=== PATIENT | female | born 1980 | race Caucasian/White ===

== ENCOUNTER 2019-02-27 18:58 | Inpatient (IN) ==
[2019-02-27] MEDS ORDERED: 0.9 % Sodium Chloride 1,000 ML IVC ONE (19:36)
[2019-02-27] MEDS ORDERED: Isovue-370 500 ML BOTTLE IVP ONE (19:37)
[2019-02-27] MEDS ORDERED: traMADol 50 MG TABLET PO STA (19:39)
[2019-02-27] MEDS ORDERED: Orphenadrine 60 MG/2 ML VIAL IVP ONE (19:44)
[2019-02-27 19:59] LABS: Bilirubin,Urine Negative (Negative); Blood,Urine Negative (Negative); Clarity,Urine Turbid (Clear); Color,Urine Yellow (Yellow); Glucose,Urine (UA) Normal (Normal); Ketones,Urine Negative (Negative); Leukocyte Esterase,Urine Trace (Negative); Nitrite,Urine Negative (Negative); PH,Urine 6.5 pH Units (5.0-8.0); Protein,Urine 30 mg/dL (Neg-Trace); Specific Gravity,Urine 1.023 (1.010-1.025); Urobilinogen,Urine Normal (Normal)
[2019-02-27 20:00] LABS: Bacteria,Urine Moderate per hpf (None-Few); RBC,Urine 0-3 per hpf (0-3); Squamous Epithelial Cell,Urine Many per lpf (None-Few)
[2019-02-27 20:10] LABS: Basophils # 0.1 K/mcL (0.0-0.2); Basophils % 0.6 %; Eosinophils # 0.3 K/mcL (0.0-0.6); Hematocrit 46.3 % (35.3-44.9); Hemoglobin 15.3 g/dL (11.5-15.4); Immature Granulocytes % 0.2 % (0-4); Lymphocytes # 5.3 K/mcL (0.6-4.6); Lymphocytes % 41.7 %; Mean Corpuscular Hemoglobin 29.3 pg (28.0-33.3); Mean Corpuscular Volume 88.5 fL (83.0-100.0); Monocytes # 1.3 K/mcL (0.0-1.3); Monocytes % 9.8 %; Neutrophils # 5.8 K/mcL (1.6-8.9); Platelet Count 366 K/mcL (140-400); Red Blood Count 5.23 M/mcL (3.82-4.97); Red Cell Distribution Width 14.9 % (11.5-14.5); Segmented Neutrophils % 45.7 %; White Blood Count 12.7 K/mcL (4.3-11.1)
[2019-02-27 20:39] LABS: Alanine Aminotransferase 330 Units/L (7-52); Albumin 4.1 g/dL (3.5-5.7); Albumin/Globulin Ratio 1.2 (1.1-2.2); Alkaline Phosphatase 99 Units/L (34-104); Aspartate Amino Transferase 227 Units/L (13-39); BUN/Creatinine Ratio 13 (6-26); Bilirubin,Total 0.3 mg/dL (0.3-1.0); Blood Urea Nitrogen 10 mg/dL (6-20); Calcium 9.2 mg/dL (8.6-10.3); Carbon Dioxide 26 mEq/L (23-29); Chloride 102 mEq/L (98-107); Creatine Kinase 52 Units/L (30-223); Globulin 3.3 g/dL (2.4-3.5); Glucose 86 mg/dL (70-105); Magnesium 1.9 mg/dL (1.6-2.6); Osmolality,Calculated 282 (280-300); Potassium 3.9 mEq/L (3.5-5.1); Sodium 137 mEq/L (136-145); Total Protein 7.4 g/dL (6.4-8.9); eGFR For African Americans > 60 (> 60); eGFR For Non-African Americans > 60 (> 60)
[2019-02-27 20:56] LABS: Candida DNA Not Detected (Not Detect); Gardnerella DNA DETECTED (Not Detect); Trichomonas DNA Not Detected (Not Detect)
[2019-02-27 23:54] LABS: Acetaminophen < 10 mcg/mL (10-20)
[2019-02-28 00:08] LABS: Thyroid Stimulating Hormone 3.026 mcIU/mL (0.340-5.600)
[2019-02-28] MEDS ORDERED: Ibuprofen 600 MG TABLET PO ONE (00:57)
[2019-02-28 01:45] LABS: INR 1.1; Prothrombin Time 12.7 Seconds (9.4-12.1)
[2019-02-28 01:57] LABS: Ethanol < 10 mg/dL (Less than 10); Salicylate < 2.5 mg/dL (15.0-30.0)
[2019-02-28 02:46] LABS: Hepatitis B Surface Antigen Nonreactive (Nonreactive)
[2019-02-28 03:15] LABS: Hepatitis B Core IgM Nonreactive (Nonreactive)
[2019-02-28 03:16] LABS: Hepatitis A Antibody IgM Nonreactive (Nonreactive)
[2019-02-28] MEDS ORDERED: Naloxone 0.4 MG/ML INJ IVP PRN (04:00)
[2019-02-28] MEDS ORDERED: Ketorolac 15 MG/ML VIAL IVP ONE ×2 (04:04→22:04)
[2019-02-28] MEDS ORDERED: Dextrose Gel 15 GM/37.5 ML TUBE PO PRN ×2 (04:07)
[2019-02-28] MEDS ORDERED: D5% in Water 1,000 ML IVC PRN (04:07)
[2019-02-28] MEDS ORDERED: *HR* Dextrose 50 % in Water (Syg) 50 ML SYRINGE IVP PRN (04:07)
[2019-02-28 04:56] LABS: Hepatitis C Virus Antibody Reactive (Nonreactive)
[2019-02-28 07:29] LABS: Basophils # 0.1 K/mcL (0.0-0.2); Basophils % 0.6 %; Eosinophils # 0.3 K/mcL (0.0-0.6); Eosinophils % 3.5 %; Hematocrit 42.5 % (35.3-44.9); Hemoglobin 13.4 g/dL (11.5-15.4); Immature Granulocytes % 0.1 % (0-4); Lymphocytes # 4.7 K/mcL (0.6-4.6); Lymphocytes % 49.4 %; Mean Corpuscular HGB Conc 31.5 g/dL (31.6-35.5); Mean Corpuscular Hemoglobin 28.9 pg (28.0-33.3); Mean Corpuscular Volume 91.6 fL (83.0-100.0); Mean Platelet Volume 9.7 fL (9.4-12.4); Monocytes # 1.3 K/mcL (0.0-1.3); Monocytes % 13.1 %; Neutrophils # 3.2 K/mcL (1.6-8.9); Platelet Count 319 K/mcL (140-400); Red Blood Count 4.64 M/mcL (3.82-4.97); Segmented Neutrophils % 33.3 %; White Blood Count 9.5 K/mcL (4.3-11.1)
[2019-02-28 07:48] LABS: Albumin 3.4 g/dL (3.5-5.7); Albumin/Globulin Ratio 1.1 (1.1-2.2); Bilirubin,Direct 0.1 mg/dL (0.0-0.2); Bilirubin,Indirect 0.2 mg/dL (0.0-1.0); Bilirubin,Total 0.3 mg/dL (0.3-1.0); Globulin 3.1 g/dL (2.4-3.5); Total Protein 6.5 g/dL (6.4-8.9)
[2019-02-28 07:49] LABS: BUN/Creatinine Ratio 15 (6-26); Blood Urea Nitrogen 9 mg/dL (6-20); Calcium 8.7 mg/dL (8.6-10.3); Carbon Dioxide 25 mEq/L (23-29); Chloride 105 mEq/L (98-107); Glucose 122 mg/dL (70-105); Osmolality,Calculated 284 (280-300); Potassium 3.9 mEq/L (3.5-5.1); Sodium 137 mEq/L (136-145); eGFR For African Americans > 60 (> 60); eGFR For Non-African Americans > 60 (> 60)
[2019-02-28] MEDS: metroNIDAZOLE 500 MG TABLET PO SCH ×2 (09:02→20:57)
[2019-02-28] MEDS: traMADol 50 MG TABLET PO PRN ×2 (12:05→20:57)
[2019-03-01] MEDS: traMADol 50 MG TABLET PO PRN ×4 (03:03→23:07)
[2019-03-01 04:44] LABS: Acinetobacter baumannii by PCR Not Detected (Not Detect); Candida albicans by PCR Not Detected (Not Detect); Candida glabrata by PCR Not Detected (Not Detect); Candida krusei by PCR Not Detected (Not Detect); Candida parapsilosis by PCR Not Detected (Not Detect); Candida tropicalis by PCR Not Detected (Not Detect); Enterobacter cloacae Cmplx PCR Not Detected (Not Detect); Enterobacteriaceae by PCR Not Detected (Not Detect); Enterococcus by PCR Not Detected (Not Detect); Escherichia coli by PCR Not Detected (Not Detect); Klebsiella oxytoca by PCR Not Detected (Not Detect); Klebsiella pneumoniae by PCR Not Detected (Not Detect); Proteus by PCR Not Detected (Not Detect); Pseudomonas aeruginosa by PCR Not Detected (Not Detect); Serratia marcescens by PCR Not Detected (Not Detect); Staphylococcus aureus by PCR Not Detected (Not Detect); Staphylococcus by PCR DETECTED (Not Detect); Streptococcus agalactiae(B)PCR Not Detected (Not Detect); Streptococcus by PCR Not Detected (Not Detect); Streptococcus pneumoniae PCR Not Detected (Not Detect); Streptococcus pyogenes (A) PCR Not Detected (Not Detect); blaKPC Carbapenem-Resist Gene Not Detected (Not Detect); mecA Methicillin-Resist Gene DETECTED (Not Detect); vanA/B Vancomycin-Resist Genes Not Detected (Not Detect)
[2019-03-01 05:19] LABS: Albumin 3.3 g/dL (3.5-5.7); Albumin/Globulin Ratio 1.1 (1.1-2.2); Bilirubin,Indirect 0.4 mg/dL (0.0-1.0); Bilirubin,Total 0.4 mg/dL (0.3-1.0); Total Protein 6.3 g/dL (6.4-8.9)
[2019-03-01] MEDS: metroNIDAZOLE 500 MG TABLET PO SCH ×2 (08:14→20:13)
[2019-03-01] MEDS: Ondansetron 4 MG/2 ML VIAL IVP PRN ×2 (08:19→18:24)
[2019-03-01] MEDS ORDERED: Vancomycin (wt based) 1,000 MG VIAL IVPB SCH (09:00)
[2019-03-01] MEDS: Morphine Sulfate 2 MG/ML SYRINGE IVP PRN ×2 (11:45→18:28)
[2019-03-02] MEDS: Ondansetron 4 MG/2 ML VIAL IVP PRN ×2 (01:13→20:49)
[2019-03-02 04:33] LABS: Hematocrit 42.5 % (35.3-44.9); Hemoglobin 13.5 g/dL (11.5-15.4); Mean Corpuscular HGB Conc 31.8 g/dL (31.6-35.5); Mean Corpuscular Hemoglobin 28.8 pg (28.0-33.3); Mean Corpuscular Volume 90.8 fL (83.0-100.0); Mean Platelet Volume 10.2 fL (9.4-12.4); Platelet Count 312 K/mcL (140-400); Red Blood Count 4.68 M/mcL (3.82-4.97); Red Cell Distribution Width 14.9 % (11.5-14.5); White Blood Count 11.9 K/mcL (4.3-11.1)
[2019-03-02 04:48] LABS: Alanine Aminotransferase 313 Units/L (7-52); Albumin 3.5 g/dL (3.5-5.7); Albumin/Globulin Ratio 1.1 (1.1-2.2); Alkaline Phosphatase 90 Units/L (34-104); Aspartate Amino Transferase 229 Units/L (13-39); Bilirubin,Direct 0.2 mg/dL (0.0-0.2); Bilirubin,Indirect 0.3 mg/dL (0.0-1.0); Bilirubin,Total 0.5 mg/dL (0.3-1.0); Globulin 3.1 g/dL (2.4-3.5); Total Protein 6.6 g/dL (6.4-8.9)
[2019-03-02] MEDS: metroNIDAZOLE 500 MG TABLET PO SCH ×2 (08:50→20:44)
[2019-03-02 09:36] LABS: BUN/Creatinine Ratio 15 (6-26); Blood Urea Nitrogen 10 mg/dL (6-20); eGFR For African Americans > 60 (> 60); eGFR For Non-African Americans > 60 (> 60)
[2019-03-02] MEDS: 0.9 % Sodium Chloride 1,000 ML IVC SCH (12:01)
[2019-03-02] MEDS: traMADol 50 MG TABLET PO PRN ×2 (12:08→19:27)
[2019-03-02 12:36] LABS: HCV Quant Log 6.22 log IU/mL
[2019-03-02 12:53] LABS: HCV Quant Interpretation DETECTED (Not Detected)
[2019-03-03 00:04] LABS: Amphetamine Screen,Urine Positive ng/mL (Cutoff=1000); Barbiturate Screen,Urine Negative ng/mL (Cutoff=200); Benzodiazepines Screen,Urine Negative ng/mL (Cutoff=200); Cannabinoid Screen,Urine Positive ng/mL (Cutoff = 50); Cocaine Screen,Urine Negative ng/mL (Cutoff= 300); Opiate Screen,Urine Negative ng/mL (Cutoff=300); Phencyclidine Screen,Urine Negative ng/mL (Cutoff=25)
[2019-03-03 02:22] LABS: Basophils % 0.3 %; Eosinophils # 0.3 K/mcL (0.0-0.6); Eosinophils % 2.6 %; Hematocrit 43.3 % (35.3-44.9); Hemoglobin 13.8 g/dL (11.5-15.4); Immature Granulocytes % 0.3 % (0-4); Lymphocytes # 4.3 K/mcL (0.6-4.6); Lymphocytes % 37.4 %; Mean Corpuscular HGB Conc 31.9 g/dL (31.6-35.5); Mean Corpuscular Hemoglobin 29.6 pg (28.0-33.3); Mean Corpuscular Volume 92.7 fL (83.0-100.0); Mean Platelet Volume 9.8 fL (9.4-12.4); Monocytes # 1.2 K/mcL (0.0-1.3); Monocytes % 10.8 %; Neutrophils # 5.6 K/mcL (1.6-8.9); Platelet Count 330 K/mcL (140-400); Red Blood Count 4.67 M/mcL (3.82-4.97); Red Cell Distribution Width 15.1 % (11.5-14.5); Segmented Neutrophils % 48.6 %; White Blood Count 11.5 K/mcL (4.3-11.1)
[2019-03-03] MEDS: traMADol 50 MG TABLET PO PRN ×4 (02:37→18:11)
[2019-03-03 02:39] LABS: BUN/Creatinine Ratio 8 (6-26); Blood Urea Nitrogen 6 mg/dL (6-20); Calcium 8.6 mg/dL (8.6-10.3); Carbon Dioxide 29 mEq/L (23-29); Chloride 102 mEq/L (98-107); Glucose 71 mg/dL (70-105); Osmolality,Calculated 278 (280-300); Potassium 3.9 mEq/L (3.5-5.1); Sodium 136 mEq/L (136-145); eGFR For African Americans > 60 (> 60); eGFR For Non-African Americans > 60 (> 60)
[2019-03-03] MEDS: 0.9 % Sodium Chloride 1,000 ML IVC SCH ×3 (03:05→20:22)
[2019-03-03] MEDS: metroNIDAZOLE 500 MG TABLET PO SCH ×2 (08:15→20:23)
[2019-03-03] MEDS ORDERED: Aminoglycoside Consult 1 EACH MC ONE (10:58)
[2019-03-03] MEDS: Morphine Sulfate 2 MG/ML SYRINGE IVP PRN (20:24)
[2019-03-04] MEDS: 0.9 % Sodium Chloride 1,000 ML IVC SCH ×2 (06:01→17:15)
[2019-03-04] MEDS: metroNIDAZOLE 500 MG TABLET PO SCH ×2 (08:24→20:24)
[2019-03-04] MEDS: traMADol 50 MG TABLET PO PRN ×2 (08:24→13:43)
[2019-03-04] MEDS ORDERED: Ibuprofen 600 MG TABLET PO PRN (12:03)
[2019-03-04] MEDS: Morphine Sulfate 2 MG/ML SYRINGE IVP PRN ×2 (14:17→20:24)
[2019-03-04 15:00] LABS: Basophils # 0.1 K/mcL (0.0-0.2); Basophils % 0.6 %; Eosinophils # 0.3 K/mcL (0.0-0.6); Eosinophils % 3.1 %; Hematocrit 40.8 % (35.3-44.9); Hemoglobin 12.8 g/dL (11.5-15.4); Immature Granulocytes % 0.1 % (0-4); Lymphocytes # 3.9 K/mcL (0.6-4.6); Lymphocytes % 41.4 %; Mean Corpuscular HGB Conc 31.4 g/dL (31.6-35.5); Mean Corpuscular Volume 92.3 fL (83.0-100.0); Mean Platelet Volume 9.7 fL (9.4-12.4); Monocytes # 1.2 K/mcL (0.0-1.3); Monocytes % 12.6 %; Platelet Count 327 K/mcL (140-400); Red Blood Count 4.42 M/mcL (3.82-4.97); Red Cell Distribution Width 14.8 % (11.5-14.5); Segmented Neutrophils % 42.2 %; White Blood Count 9.4 K/mcL (4.3-11.1)
[2019-03-04 15:21] LABS: BUN/Creatinine Ratio 7 (6-26); Blood Urea Nitrogen 6 mg/dL (6-20); Carbon Dioxide 23 mEq/L (23-29); Chloride 106 mEq/L (98-107); Glucose 128 mg/dL (70-105); Osmolality,Calculated 279 (280-300); Potassium 3.9 mEq/L (3.5-5.1); Sodium 135 mEq/L (136-145); eGFR For African Americans > 60 (> 60); eGFR For Non-African Americans > 60 (> 60)
[2019-03-05] MEDS: 0.9 % Sodium Chloride 1,000 ML IVC SCH (01:13)
[2019-03-05] MEDS: traMADol 50 MG TABLET PO PRN (03:57)
[2019-03-05 05:43] LABS: Hematocrit 41.1 % (35.3-44.9); Hemoglobin 13.5 g/dL (11.5-15.4); Mean Corpuscular HGB Conc 32.8 g/dL (31.6-35.5); Mean Corpuscular Hemoglobin 29.5 pg (28.0-33.3); Mean Corpuscular Volume 89.9 fL (83.0-100.0); Mean Platelet Volume 9.6 fL (9.4-12.4); Platelet Count 325 K/mcL (140-400); Red Blood Count 4.57 M/mcL (3.82-4.97); Red Cell Distribution Width 14.8 % (11.5-14.5); White Blood Count 11.2 K/mcL (4.3-11.1)
[2019-03-05 06:06] LABS: BUN/Creatinine Ratio 15 (6-26); Blood Urea Nitrogen 10 mg/dL (6-20); Calcium 8.5 mg/dL (8.6-10.3); Carbon Dioxide 23 mEq/L (23-29); Chloride 104 mEq/L (98-107); Glucose 114 mg/dL (70-105); Osmolality,Calculated 282 (280-300); Potassium 3.9 mEq/L (3.5-5.1); Sodium 136 mEq/L (136-145); eGFR For African Americans > 60 (> 60); eGFR For Non-African Americans > 60 (> 60)
[2019-03-05 07:15] VITALS: BP 94/62
[2019-03-05] MEDS: metroNIDAZOLE 500 MG TABLET PO SCH (09:07)
== END 2019-03-05 10:59 | disposition home or self-care (01) | DRG 312 ==
LOC: EMEROOARM 18:58 → 3BNU 18:58
PROVIDERS: ADMIT Internal Medicine; ATTEND Internal Medicine

== ENCOUNTER 2019-08-03 03:18 | Observation (INO) ==
[2019-08-03] MEDS ORDERED: Ondansetron 4 MG/2 ML VIAL IVP STA (03:27)
[2019-08-03 03:53] LABS: Basophils % 0.2 %; Eosinophils % 0.3 %
[2019-08-03 03:55] LABS: Basophils # 0.1 K/mcL (0.0-0.2); Eosinophils # 0.1 K/mcL (0.0-0.6); Hematocrit 48.9 % (35.3-44.9); Hemoglobin 15.3 g/dL (11.5-15.4); Immature Granulocytes % 0.6 % (0-4); Lymphocytes # 3.7 K/mcL (0.6-4.6); Lymphocytes % 13.5 %; Mean Corpuscular HGB Conc 31.3 g/dL (31.6-35.5); Mean Corpuscular Hemoglobin 29.4 pg (28.0-33.3); Mean Corpuscular Volume 93.9 fL (83.0-100.0); Mean Platelet Volume 9.7 fL (9.4-12.4); Monocytes % 7.1 %; Platelet Count 371 K/mcL (140-400); Red Blood Count 5.21 M/mcL (3.82-4.97); Red Cell Distribution Width 14.2 % (11.5-14.5); Segmented Neutrophils % 78.3 %; White Blood Count 27.4 K/mcL (4.3-11.1)
[2019-08-03 03:55] LABS: Bilirubin,Urine Negative (Negative); Blood,Urine Large (Negative); Clarity,Urine Cloudy (Clear); Color,Urine Yellow (Yellow); Glucose,Urine (UA) Normal (Normal); Ketones,Urine Negative (Negative); Leukocyte Esterase,Urine Moderate (Negative); Nitrite,Urine Positive (Negative); Protein,Urine Negative (Neg-Trace); Specific Gravity,Urine 1.023 (1.010-1.025); Urobilinogen,Urine Normal (Normal)
[2019-08-03 03:58] LABS: Bacteria,Urine Few per hpf (None-Few); Hyaline Casts,Urine Moderate per lpf (None-Few); Squamous Epithelial Cell,Urine Many per lpf (None-Few); WBC,Urine 50-100 per hpf (0-3)
[2019-08-03 04:01] LABS: Neutrophils # 21.5 K/mcL (1.6-8.9)
[2019-08-03] MEDS ORDERED: 0.9 % Sodium Chloride 1,000 ML IVC STA (04:01)
[2019-08-03] MEDS ORDERED: Ketorolac 15 MG/ML VIAL IVP STA (04:01)
[2019-08-03] MEDS ORDERED: 0.9 % Sodium Chloride 500 ML IVC STA (04:02)
[2019-08-03 04:10] LABS: Alanine Aminotransferase 235 Units/L (7-52); Albumin 3.9 g/dL (3.5-5.7); Alkaline Phosphatase 110 Units/L (34-104); Aspartate Amino Transferase 206 Units/L (13-39); BUN/Creatinine Ratio 17 (6-26); Bilirubin,Direct 0.1 mg/dL (0.0-0.2); Bilirubin,Indirect 0.2 mg/dL (0.0-1.0); Bilirubin,Total 0.3 mg/dL (0.3-1.0); Blood Urea Nitrogen 13 mg/dL (6-20); Calcium 9.1 mg/dL (8.6-10.3); Carbon Dioxide 25 mEq/L (23-29); Chloride 103 mEq/L (98-107); Glucose 144 mg/dL (70-105); Lipase 14 Units/L (11-82); Osmolality,Calculated 289 (280-300); Potassium 4.5 mEq/L (3.5-5.1); Sodium 138 mEq/L (136-145); Total Protein 7.9 g/dL (6.4-8.9); eGFR For African Americans > 60 (> 60); eGFR For Non-African Americans > 60 (> 60)
[2019-08-03] MEDS ORDERED: cefTRIAXone 1,000 MG in 0.9 % Sodium Chloride Mini Bag 100 ML IVPB ONE (04:23)
[2019-08-03 04:28] LABS: Platelet Estimate Normal (Normal)
[2019-08-03] MEDS ORDERED: cefTRIAXone 1,000 MG in Water for inj. (sterile) 10 ML IVP ONE (04:31)
[2019-08-03] MEDS ORDERED: Morphine Sulfate 2 MG/ML SYRINGE IVP ONE (05:00)
[2019-08-03] MEDS ORDERED: Dextrose Gel 15 GM/37.5 ML TUBE PO PRN ×2 (05:44)
[2019-08-03] MEDS ORDERED: *HR* Dextrose 50 % in Water (Syg) 50 ML SYRINGE IVP PRN (05:44)
[2019-08-03] MEDS ORDERED: Naloxone 0.4 MG/ML INJ IVP PRN ×2 (05:44→05:48)
[2019-08-03] MEDS ORDERED: D5% in Water 1,000 ML IVC PRN (05:44)
[2019-08-03] MEDS ORDERED: Insulin LISPRO 300 UNITS/3 ML VIAL SQ SCH (06:00)
[2019-08-03] MEDS: MetroNIDAZOLE 500 MG/100 ML 500 MG/100 ML BAG IVPB SCH ×3 (06:42→21:39)
[2019-08-03] MEDS: Cefepime HCl 2,000 MG in Water for inj. (sterile) 20 ML IVP SCH ×3 (06:42→21:39)
[2019-08-03] MEDS ORDERED: Sennosides/Docusate Sodium TABLET PO PRN (08:00)
[2019-08-03] MEDS ORDERED: 0.9 % Sodium Chloride 1,000 ML IVC SCH (08:15)
[2019-08-03] MEDS: Insulin LISPRO 300 UNITS/3 ML VIAL SQ SCH ×3 (08:49→17:28)
[2019-08-03 11:45] LABS: Estimated Average Glucose 137 mg/dl
[2019-08-03] MEDS: Ondansetron 4 MG/2 ML VIAL IVP PRN (13:00)
[2019-08-03 17:19] LABS: Amphetamine Screen,Urine Negative ng/mL (Cutoff=1000); Barbiturate Screen,Urine Negative ng/mL (Cutoff=200)
[2019-08-03 17:21] LABS: Benzodiazepines Screen,Urine Negative ng/mL (Cutoff=300)
[2019-08-03 17:22] LABS: Cannabinoid Screen,Urine Positive ng/mL (Cutoff = 50); Cocaine Screen,Urine Negative ng/mL (Cutoff= 300); Opiate Screen,Urine Positive ng/mL (Cutoff=300); Phencyclidine Screen,Urine Negative ng/mL (Cutoff=25)
[2019-08-03] MEDS: *HR* Heparin 5,000 UNIT/ML VIAL SQ SCH (17:33)
[2019-08-03] MEDS: 0.9 % Sodium Chloride 1,000 ML IVC SCH (18:31)
[2019-08-04] MEDS: 0.9 % Sodium Chloride 1,000 ML IVC SCH (03:37)
[2019-08-04 04:57] LABS: Basophils % 0.3 %; Eosinophils # 0.2 K/mcL (0.0-0.6); Eosinophils % 2.5 %; Hematocrit 38.8 % (35.3-44.9); Immature Granulocytes % 0.2 % (0-4); Lymphocytes # 4.8 K/mcL (0.6-4.6); Lymphocytes % 51.9 %; Mean Corpuscular HGB Conc 32.2 g/dL (31.6-35.5); Mean Corpuscular Hemoglobin 30.9 pg (28.0-33.3); Mean Corpuscular Volume 95.8 fL (83.0-100.0); Mean Platelet Volume 10.3 fL (9.4-12.4); Monocytes # 0.7 K/mcL (0.0-1.3); Monocytes % 7.7 %; Neutrophils # 3.4 K/mcL (1.6-8.9); Platelet Count 314 K/mcL (140-400); Red Blood Count 4.05 M/mcL (3.82-4.97); Red Cell Distribution Width 14.4 % (11.5-14.5); Segmented Neutrophils % 37.4 %
[2019-08-04 04:58] LABS: Hemoglobin 12.5 g/dL (11.5-15.4); White Blood Count 9.2 K/mcL (4.3-11.1)
[2019-08-04 05:18] LABS: BUN/Creatinine Ratio 18 (6-26); Blood Urea Nitrogen 11 mg/dL (6-20); Calcium 7.7 mg/dL (8.6-10.3); Carbon Dioxide 25 mEq/L (23-29); Chloride 108 mEq/L (98-107); Glucose 85 mg/dL (70-105); Magnesium 1.8 mg/dL (1.6-2.6); Osmolality,Calculated 283 (280-300); Phosphorous 3.2 mg/dL (2.7-4.5); Potassium 3.9 mEq/L (3.5-5.1); Sodium 137 mEq/L (136-145); eGFR For African Americans > 60 (> 60); eGFR For Non-African Americans > 60 (> 60)
[2019-08-04] MEDS: Cefepime HCl 2,000 MG in Water for inj. (sterile) 20 ML IVP SCH (05:51)
[2019-08-04] MEDS: MetroNIDAZOLE 500 MG/100 ML 500 MG/100 ML BAG IVPB SCH (05:51)
[2019-08-04] MEDS: *HR* Heparin 5,000 UNIT/ML VIAL SQ SCH ×2 (05:52→17:16)
[2019-08-04] MEDS: cefTRIAXone 1,000 MG in Water for inj. (sterile) 10 ML IVP SCH (08:28)
[2019-08-04] MEDS: Insulin LISPRO 300 UNITS/3 ML VIAL SQ SCH ×3 (08:31→17:28)
[2019-08-04] MEDS: Ondansetron 4 MG/2 ML VIAL IVP PRN ×2 (12:49→23:33)
[2019-08-05] MEDS: *HR* Heparin 5,000 UNIT/ML VIAL SQ SCH (05:54)
[2019-08-05 06:34] VITALS: BP 106/72
[2019-08-05] MEDS: Insulin LISPRO 300 UNITS/3 ML VIAL SQ SCH (08:23)
[2019-08-05] MEDS: cefTRIAXone 1,000 MG in Water for inj. (sterile) 10 ML IVP SCH (08:35)
== END 2019-08-05 10:06 | disposition home or self-care (01) ==
LOC: 3ANU 03:18 → EMEROOARM 03:18 → SUATTDRO 05:15 → 3ANU 05:46
PROVIDERS: ADMIT Family Medicine; ATTEND Internal Medicine

== ENCOUNTER 2020-05-01 14:42 | Inpatient (IN) ==
[2020-05-01 15:39] LABS: Basophils # 0.1 K/mcL (0.0-0.2); Basophils % 0.4 %; Hematocrit 45.2 % (35.3-44.9); Hemoglobin 14.3 g/dL (11.5-15.4); Immature Granulocytes % 0.7 % (0-4); Lymphocytes # 2.2 K/mcL (0.6-4.6); Lymphocytes % 12.8 %; Mean Corpuscular HGB Conc 31.6 g/dL (31.6-35.5); Mean Corpuscular Hemoglobin 29.1 pg (28.0-33.3); Mean Corpuscular Volume 91.9 fL (83.0-100.0); Mean Platelet Volume 8.7 fL (9.4-12.4); Monocytes # 0.2 K/mcL (0.0-1.3); Monocytes % 1.1 %; Neutrophils # 14.4 K/mcL (1.6-8.9); Platelet Count 734 K/mcL (140-400); Red Blood Count 4.92 M/mcL (3.82-4.97); Red Cell Distribution Width 13.2 % (11.5-14.5); White Blood Count 16.9 K/mcL (4.3-11.1)
[2020-05-01 15:54] LABS: INR 1.3; Prothrombin Time 14.4 Seconds (9.4-12.1)
[2020-05-01 15:56] LABS: Activated Partial Thrombo Time 33.6 Seconds (26.0-36.0)
[2020-05-01 16:02] LABS: Alanine Aminotransferase 53 Units/L (7-52); Albumin 3.8 g/dL (3.5-5.7); Albumin/Globulin Ratio 0.9 (1.1-2.2); Alkaline Phosphatase 89 Units/L (34-104); Aspartate Amino Transferase 50 Units/L (13-39); BUN/Creatinine Ratio 21 (6-26); Bilirubin,Direct 0.1 mg/dL (0.0-0.2); Bilirubin,Indirect 0.4 mg/dL (0.0-1.0); Bilirubin,Total 0.5 mg/dL (0.3-1.0); Blood Urea Nitrogen 15 mg/dL (6-20); C-Reactive Protein 33 mg/L (Less than 10); Calcium 9.1 mg/dL (8.6-10.3); Carbon Dioxide 22 mEq/L (23-29); Chloride 104 mEq/L (98-107); Globulin 4.3 g/dL (2.4-3.5); Glucose 186 mg/dL (70-105); Lactate Dehydrogenase 350 Units/L (140-271); Magnesium 1.7 mg/dL (1.6-2.6); Osmolality,Calculated 288 (280-300); Phosphorous 2.6 mg/dL (2.7-4.5); Potassium 4.3 mEq/L (3.5-5.1); Sodium 136 mEq/L (136-145); Total Protein 8.1 g/dL (6.4-8.9); eGFR For African Americans > 60 (> 60); eGFR For Non-African Americans > 60 (> 60)
[2020-05-01] MEDS ORDERED: Isovue-370 500 ML BOTTLE IVP ONE (16:07)
[2020-05-01] MEDS ORDERED: Aspirin 81 MG TAB.CHEW PO ONE (16:12)
[2020-05-01 16:23] LABS: Ferritin 51 ng/mL (10-120)
[2020-05-01] MEDS ORDERED: Piperacillin/Tazobactam 3.375 GM in 0.9 % Sodium Chloride Mini Bag 100 ML IVPB ONE (16:34)
[2020-05-01] MEDS ORDERED: *HR* FentaNYL (PF) 100 MCG/2 ML VIAL IVP ONE ×2 (16:35→18:21)
[2020-05-01] MEDS ORDERED: Vancomycin 1,500 MG/265 ML IV.SOLN IVPB ONE (17:00)
[2020-05-01 17:18] LABS: Bacteria,Urine Few per hpf (None-Few); Bilirubin,Urine Negative (Negative); Blood,Urine Large (Negative); Clarity,Urine Turbid (Clear); Color,Urine Light-Orange (Yellow); Glucose,Urine (UA) Normal (Normal); Hyaline Casts,Urine Few per lpf (None Seen); Ketones,Urine Negative (Negative); Leukocyte Esterase,Urine Negative (Negative); Mucus,Urine Moderate per lpf (None-Few); Nitrite,Urine Negative (Negative); PH,Urine 6.5 pH Units (5.0-8.0); Protein,Urine 30 mg/dL (Neg-Trace); RBC,Urine TNTC per hpf (0-3); Specific Gravity,Urine 1.029 (1.010-1.025); Squamous Epithelial Cell,Urine Few per hpf (None-Few)
[2020-05-01] MEDS ORDERED: 0.9 % Sodium Chloride 1,000 ML IVC ONE (18:21)
[2020-05-01] MEDS ORDERED: Piperacillin/Tazobactam 3.375 GM VIAL ONE (18:25)
[2020-05-01] MEDS ORDERED: *HR* Heparin 5,000 UNIT/ML VIAL IVP ONE (19:29)
[2020-05-01] MEDS ORDERED: Heparin 25,000UNIT/250ML 1/2NS 25,000 UNIT/250 ML IV.SOLN IVC SCH (19:30)
[2020-05-01] MEDS ORDERED: *HR* Heparin 5,000 UNIT/ML VIAL IVP PRN ×2 (19:34)
[2020-05-01] MEDS ORDERED: Acetaminophen 325 MG TABLET PO PRN (19:35)
[2020-05-01] MEDS ORDERED: Naloxone 0.4 MG/ML INJ IVP PRN (19:35)
[2020-05-01] MEDS ORDERED: Ondansetron 4 MG/2 ML VIAL IVP PRN (19:35)
[2020-05-01] MEDS ORDERED: Perflutren Lipid Microsphere 1.3 ML in 0.9 % Sodium Chloride 8.7 ML IVP PRN (19:58)
[2020-05-01 20:02] LABS: Hematocrit 42.7 % (35.3-44.9); Hemoglobin 13.6 g/dL (11.5-15.4); Mean Corpuscular HGB Conc 31.9 g/dL (31.6-35.5); Mean Corpuscular Hemoglobin 29.2 pg (28.0-33.3); Mean Corpuscular Volume 91.8 fL (83.0-100.0); Mean Platelet Volume 8.6 fL (9.4-12.4); Platelet Count 712 K/mcL (140-400); Red Blood Count 4.65 M/mcL (3.82-4.97); Red Cell Distribution Width 13.4 % (11.5-14.5); White Blood Count 12.5 K/mcL (4.3-11.1)
[2020-05-01] MEDS: *HR* HYDROcodone/Acet 5/325 mg TABLET PO ONE ×2 (20:07→20:10)
[2020-05-01] MEDS: hydrOXYzine pamoate 25 MG CAPSULE PO PRN (21:47)
[2020-05-02] MEDS ORDERED: *HR* Dextrose 50 % in Water (Vial) 50 ML VIAL IVP PRN (01:10)
[2020-05-02] MEDS ORDERED: Dextrose Gel 15 GM/37.5 ML TUBE PO PRN ×2 (01:10)
[2020-05-02] MEDS ORDERED: D5% in Water 1,000 ML IVC PRN (01:10)
[2020-05-02 02:54] LABS: Basophils % 0.1 %; Hemoglobin 13.2 g/dL (11.5-15.4); Immature Granulocytes % 0.5 % (0-4); Lymphocytes # 3.9 K/mcL (0.6-4.6); Lymphocytes % 17.2 %; Mean Corpuscular HGB Conc 31.4 g/dL (31.6-35.5); Mean Corpuscular Hemoglobin 29.1 pg (28.0-33.3); Mean Corpuscular Volume 92.7 fL (83.0-100.0); Mean Platelet Volume 8.9 fL (9.4-12.4); Monocytes # 1.6 K/mcL (0.0-1.3); Monocytes % 7.1 %; Neutrophils # 16.9 K/mcL (1.6-8.9); Platelet Count 624 K/mcL (140-400); Red Blood Count 4.53 M/mcL (3.82-4.97); Red Cell Distribution Width 13.2 % (11.5-14.5); Segmented Neutrophils % 75.1 %
[2020-05-02 02:56] LABS: White Blood Count 22.5 K/mcL (4.3-11.1)
[2020-05-02 03:15] LABS: INR 1.2; Prothrombin Time 14.3 Seconds (9.4-12.1)
[2020-05-02 03:40] LABS: Alanine Aminotransferase 40 Units/L (7-52); Albumin 3.3 g/dL (3.5-5.7); Albumin/Globulin Ratio 0.9 (1.1-2.2); Alkaline Phosphatase 74 Units/L (34-104); Aspartate Amino Transferase 32 Units/L (13-39); BUN/Creatinine Ratio 30 (6-26); Bilirubin,Total 0.3 mg/dL (0.3-1.0); Blood Urea Nitrogen 16 mg/dL (6-20); C-Reactive Protein 26 mg/L (Less than 10); Calcium 8.6 mg/dL (8.6-10.3); Carbon Dioxide 20 mEq/L (23-29); Chloride 107 mEq/L (98-107); Chol/HDL Ratio 4.7 (0-4.9); Cholesterol 108 mg/dL (< 200); Ferritin 36 ng/mL (10-120); Globulin 3.7 g/dL (2.4-3.5); Glucose 169 mg/dL (70-105); HDL Cholesterol 23 mg/dL (40-59); LDL Cholesterol,Calculated 71 mg/dL (< 100); Lactate Dehydrogenase 254 Units/L (140-271); Magnesium 1.8 mg/dL (1.6-2.6); Osmolality,Calculated 287 (280-300); Phosphorous 3.8 mg/dL (2.7-4.5); Potassium 4.5 mEq/L (3.5-5.1); Sodium 136 mEq/L (136-145); Triglycerides 70 mg/dL (< 150); eGFR For African Americans > 60 (> 60); eGFR For Non-African Americans > 60 (> 60)
[2020-05-02] MEDS: Insulin LISPRO 300 UNITS/3 ML VIAL SUBQ SCH ×4 (06:18→23:51)
[2020-05-02 06:34] LABS: Troponin I < 0.03 ng/mL (< 0.04)
[2020-05-02] MEDS: ARIPiprazole 10 MG TABLET PO SCH (08:36)
[2020-05-02] MEDS: BuPROPion SR (12 HR) 150 MG TABLET PO SCH ×2 (08:36→21:46)
[2020-05-02] MEDS: FLUoxetine 20 MG CAPSULE PO SCH (08:36)
[2020-05-02] MEDS: Gabapentin 300 MG CAPSULE PO SCH ×3 (08:37→21:46)
[2020-05-02] MEDS ORDERED: Aspirin Enteric Coated 81 MG Tablet PO SCH (09:00)
[2020-05-02] MEDS ORDERED: Dexamethasone Sodium Phos/PF 10 MG/ML VIAL IVP SCH (09:00)
[2020-05-02] MEDS: Ipratropium/Albuterol Neb 3 ML IH SCH ×4 (10:42→20:47)
[2020-05-02] MEDS: hydrOXYzine pamoate 25 MG CAPSULE PO PRN (21:46)
[2020-05-03] MEDS: Ipratropium/Albuterol Neb 3 ML IH SCH ×3 (00:16→08:54)
[2020-05-03] MEDS: Insulin LISPRO 300 UNITS/3 ML VIAL SUBQ SCH (05:57)
[2020-05-03 06:31] LABS: Basophils # 0.1 K/mcL (0.0-0.2); Basophils % 0.3 %; Eosinophils % 0.1 %; Hematocrit 40.5 % (35.3-44.9); Hemoglobin 12.9 g/dL (11.5-15.4); Immature Granulocytes % 0.5 % (0-4); Lymphocytes # 6.9 K/mcL (0.6-4.6); Lymphocytes % 30.3 %; Mean Corpuscular HGB Conc 31.9 g/dL (31.6-35.5); Mean Corpuscular Hemoglobin 29.9 pg (28.0-33.3); Mean Platelet Volume 9.5 fL (9.4-12.4); Monocytes # 1.9 K/mcL (0.0-1.3); Monocytes % 8.3 %; Neutrophils # 13.7 K/mcL (1.6-8.9); Platelet Count 546 K/mcL (140-400); Red Blood Count 4.31 M/mcL (3.82-4.97); Red Cell Distribution Width 13.2 % (11.5-14.5); Segmented Neutrophils % 60.5 %; White Blood Count 22.7 K/mcL (4.3-11.1)
[2020-05-03 06:44] LABS: Alanine Aminotransferase 27 Units/L (7-52); Albumin 3.1 g/dL (3.5-5.7); Alkaline Phosphatase 110 Units/L (34-104); Aspartate Amino Transferase 17 Units/L (13-39); BUN/Creatinine Ratio 24 (6-26); Bilirubin,Total 0.2 mg/dL (0.3-1.0); Blood Urea Nitrogen 18 mg/dL (6-20); Calcium 8.5 mg/dL (8.6-10.3); Carbon Dioxide 20 mEq/L (23-29); Chloride 107 mEq/L (98-107); Globulin 3.2 g/dL (2.4-3.5); Glucose 250 mg/dL (70-105); Osmolality,Calculated 292 (280-300); Potassium 3.9 mEq/L (3.5-5.1); Sodium 136 mEq/L (136-145); Total Protein 6.3 g/dL (6.4-8.9); eGFR For African Americans > 60 (> 60); eGFR For Non-African Americans > 60 (> 60)
[2020-05-03 06:48] VITALS: BP 114/73
[2020-05-03] MEDS: FLUoxetine 20 MG CAPSULE PO SCH (07:25)
[2020-05-03] MEDS: Gabapentin 300 MG CAPSULE PO SCH (07:25)
[2020-05-03] MEDS: hydrOXYzine pamoate 25 MG CAPSULE PO PRN (07:25)
[2020-05-03] MEDS: ARIPiprazole 10 MG TABLET PO SCH (07:25)
[2020-05-03] MEDS: BuPROPion SR (12 HR) 150 MG TABLET PO SCH (07:25)
[2020-05-03] MEDS ORDERED: predniSONE 20 MG TABLET PO SCH (09:00)
[2020-05-03] MEDS ORDERED: Budesonide/Formoterol 160/4.5 1 PUFF INH IH SCH (10:00)
== END 2020-05-03 10:49 | disposition home or self-care (01) | DRG 137 ==
LOC: 3BNU 14:42 → EMEROOARM 14:42 → SUATTDRO 20:06 → 3BNU 20:30
PROVIDERS: ADMIT Student in an Organized Health Care Education/Training Program; ATTEND Family Medicine

== ENCOUNTER 2021-07-04 03:28 | Inpatient (IN) ==
[2021-07-04] MEDS ORDERED: Naloxone 0.4 MG/ML INJ IVP PRN (10:31)
[2021-07-04] MEDS ORDERED: Furosemide 40 MG/4 ML VIAL IVP ONE (10:35)
[2021-07-04] MEDS ORDERED: cefTRIAXone 2,000 MG in 0.9 % Sodium Chloride 20 ML IVPB SCH (11:00)
[2021-07-04 11:10] LABS: Basophils # 0.1 K/mcL (0.0-0.2); Basophils % 0.2 %; Hematocrit 39.1 % (35.3-44.9); Hemoglobin 12.8 g/dL (11.5-15.4); Immature Granulocytes % 1.1 % (0-4); Lymphocytes # 2.6 K/mcL (0.6-4.6); Lymphocytes % 10.7 %; Mean Corpuscular HGB Conc 32.7 g/dL (31.6-35.5); Mean Corpuscular Hemoglobin 29.6 pg (28.0-33.3); Mean Corpuscular Volume 90.3 fL (83.0-100.0); Mean Platelet Volume 9.3 fL (9.4-12.4); Monocytes # 0.7 K/mcL (0.0-1.3); Monocytes % 2.8 %; Neutrophils # 20.9 K/mcL (1.6-8.9); Nucleated Red Blood Cells 0.3 /100 WBC (0); Platelet Count 457 K/mcL (140-400); Red Blood Count 4.33 M/mcL (3.82-4.97); Red Cell Distribution Width 14.4 % (11.5-14.5); Segmented Neutrophils % 85.2 %; White Blood Count 24.5 K/mcL (4.3-11.1)
[2021-07-04 11:34] LABS: Alanine Aminotransferase 46 Units/L (7-52); Albumin 3.3 g/dL (3.5-5.7); Albumin/Globulin Ratio 0.9 (1.1-2.2); Alkaline Phosphatase 126 Units/L (34-104); Aspartate Amino Transferase 31 Units/L (13-39); BUN/Creatinine Ratio 30 (6-26); Bilirubin,Total 0.4 mg/dL (0.3-1.0); Blood Urea Nitrogen 16 mg/dL (6-20); Carbon Dioxide 21 mEq/L (23-29); Chloride 107 mEq/L (98-107); Globulin 3.5 g/dL (2.4-3.5); Glucose 159 mg/dL (70-105); Osmolality,Calculated 285 (280-300); Potassium 4.3 mEq/L (3.5-5.1); Sodium 135 mEq/L (136-145); Total Protein 6.8 g/dL (6.4-8.9); eGFR For African Americans > 60 (> 60); eGFR For Non-African Americans > 60 (> 60)
[2021-07-04 12:01] LABS: Magnesium 1.5 mg/dL (1.6-2.6)
[2021-07-04] MEDS ORDERED: Dextrose 4 GM Chewable Tablets PO PRN ×2 (12:05)
[2021-07-04] MEDS ORDERED: D5% in Water 1,000 ML IVC PRN (12:05)
[2021-07-04] MEDS ORDERED: *HR* Dextrose 50 % in Water (Syg) 50 ML SYRINGE IVP PRN (12:05)
[2021-07-04] MEDS: Azithromycin 500 MG in 0.9 % Sodium Chloride 250 ML IVPB SCH (12:09)
[2021-07-04] MEDS: MethylPREDNISolone 40 MG/ML VIAL IVP SCH ×2 (12:11→19:01)
[2021-07-04] MEDS: Ipratropium/Albuterol Neb 3 ML IH SCH ×4 (13:16→23:46)
[2021-07-04] MEDS: Budesonide/Formoterol 80/4.5 1 PUFF INH IH SCH ×2 (13:16→19:58)
[2021-07-04] MEDS: Ondansetron 4 MG/2 ML VIAL IVP PRN ×2 (14:09→20:23)
[2021-07-04] MEDS: *HR* LORazepam 2 MG/ML VIAL IVP PRN (16:41)
[2021-07-04] MEDS: Insulin LISPRO 300 UNITS/3 ML VIAL SUBQ SCH ×2 (16:47→20:19)
[2021-07-04] MEDS: Gabapentin 300 MG CAPSULE PO SCH (20:18)
[2021-07-04] MEDS: Insulin DETEMIR 100 UNIT/ML X5UNITS SUBQ SCH (20:19)
[2021-07-05] MEDS: MethylPREDNISolone 40 MG/ML VIAL IVP SCH ×5 (00:04→23:59)
[2021-07-05] MEDS: *HR* LORazepam 2 MG/ML VIAL IVP PRN (00:04)
[2021-07-05] MEDS: Ipratropium/Albuterol Neb 3 ML IH SCH ×6 (03:37→23:47)
[2021-07-05 04:57] LABS: Basophils % 0.2 %; Mean Platelet Volume 9.4 fL (9.4-12.4); Nucleated Red Blood Cells 0.4 /100 WBC (0)
[2021-07-05 04:59] LABS: Basophils # 0.1 K/mcL (0.0-0.2); Hematocrit 38.8 % (35.3-44.9); Immature Granulocytes % 1.1 % (0-4); Lymphocytes # 2.4 K/mcL (0.6-4.6); Lymphocytes % 8.7 %; Mean Corpuscular HGB Conc 33.5 g/dL (31.6-35.5); Mean Corpuscular Hemoglobin 30.4 pg (28.0-33.3); Mean Corpuscular Volume 90.7 fL (83.0-100.0); Monocytes # 0.9 K/mcL (0.0-1.3); Monocytes % 3.4 %; Neutrophils # 23.4 K/mcL (1.6-8.9); Platelet Count 520 K/mcL (140-400); Red Blood Count 4.28 M/mcL (3.82-4.97); Red Cell Distribution Width 14.3 % (11.5-14.5); Segmented Neutrophils % 86.6 %
[2021-07-05 05:15] LABS: BUN/Creatinine Ratio 35 (6-26); Blood Urea Nitrogen 24 mg/dL (6-20); Calcium 8.7 mg/dL (8.6-10.3); Carbon Dioxide 23 mEq/L (23-29); Chloride 102 mEq/L (98-107); Glucose 223 mg/dL (70-105); Osmolality,Calculated 287 (280-300); Potassium 4.2 mEq/L (3.5-5.1); Sodium 133 mEq/L (136-145); eGFR For African Americans > 60 (> 60); eGFR For Non-African Americans > 60 (> 60)
[2021-07-05] MEDS: *HR* Enoxaparin 40 MG/0.4 ML SYRINGE SQ SCH (05:42)
[2021-07-05] MEDS: Budesonide/Formoterol 80/4.5 1 PUFF INH IH SCH ×2 (07:42→20:50)
[2021-07-05] MEDS: Piperacillin/Tazobactam 3.375 GM in 0.9 % Sodium Chloride Mini Bag 100 ML IVPB SCH ×2 (09:04→17:36)
[2021-07-05] MEDS: Insulin LISPRO 300 UNITS/3 ML VIAL SUBQ SCH ×4 (09:05→21:09)
[2021-07-05] MEDS: BuPROPion XL (24 HR) 150 MG TABLET PO SCH (09:06)
[2021-07-05] MEDS: FLUoxetine 20 MG CAPSULE PO SCH (09:06)
[2021-07-05] MEDS: tiZANidine 4 MG TABLET PO SCH ×3 (09:06→21:10)
[2021-07-05] MEDS: Gabapentin 300 MG CAPSULE PO SCH ×3 (09:06→21:10)
[2021-07-05] MEDS: Azithromycin 500 MG in 0.9 % Sodium Chloride 250 ML IVPB SCH (12:51)
[2021-07-05] MEDS: Insulin DETEMIR 100 UNIT/ML X5UNITS SUBQ SCH (21:12)
[2021-07-06 00:47] LABS: Mean Platelet Volume 9.3 fL (9.4-12.4)
[2021-07-06 00:48] LABS: Hematocrit 37.9 % (35.3-44.9); Hemoglobin 12.5 g/dL (11.5-15.4); Mean Corpuscular Hemoglobin 29.9 pg (28.0-33.3); Mean Corpuscular Volume 90.7 fL (83.0-100.0); Platelet Count 486 K/mcL (140-400); Red Blood Count 4.18 M/mcL (3.82-4.97); Red Cell Distribution Width 14.1 % (11.5-14.5)
[2021-07-06 00:54] LABS: White Blood Count 33.9 K/mcL (4.3-11.1)
[2021-07-06 00:55] LABS: INR 1.3; Prothrombin Time 14.6 Seconds (9.4-12.1)
[2021-07-06 01:07] LABS: BUN/Creatinine Ratio 37 (6-26); Blood Urea Nitrogen 23 mg/dL (6-20); Calcium 8.5 mg/dL (8.6-10.3); Carbon Dioxide 24 mEq/L (23-29); Chloride 103 mEq/L (98-107); Glucose 210 mg/dL (70-105); Osmolality,Calculated 286 (280-300); Potassium 4.3 mEq/L (3.5-5.1); Sodium 133 mEq/L (136-145); eGFR For African Americans > 60 (> 60); eGFR For Non-African Americans > 60 (> 60)
[2021-07-06] MEDS: Ipratropium/Albuterol Neb 3 ML IH SCH ×6 (04:28→23:18)
[2021-07-06] MEDS: Piperacillin/Tazobactam 3.375 GM in 0.9 % Sodium Chloride Mini Bag 100 ML IVPB SCH ×3 (04:49→22:30)
[2021-07-06] MEDS: MethylPREDNISolone 40 MG/ML VIAL IVP SCH ×3 (05:09→17:21)
[2021-07-06] MEDS: *HR* Enoxaparin 40 MG/0.4 ML SYRINGE SQ SCH (05:10)
[2021-07-06] MEDS: tiZANidine 4 MG TABLET PO SCH ×3 (07:44→19:39)
[2021-07-06] MEDS: BuPROPion XL (24 HR) 150 MG TABLET PO SCH (07:44)
[2021-07-06] MEDS: FLUoxetine 20 MG CAPSULE PO SCH (07:44)
[2021-07-06] MEDS: Gabapentin 300 MG CAPSULE PO SCH ×3 (07:44→19:39)
[2021-07-06] MEDS: Insulin LISPRO 300 UNITS/3 ML VIAL SUBQ SCH ×4 (07:49→20:40)
[2021-07-06] MEDS: Budesonide/Formoterol 80/4.5 1 PUFF INH IH SCH ×2 (08:03→20:19)
[2021-07-06] MEDS ORDERED: Lidocaine -MPF 4% 5 ML AMPUL ONE (08:30)
[2021-07-06] MEDS ORDERED: Lidocaine HCL 4 ML Topical Solution (Laryng-O-Jet Kit Sterile Pak) TP ONE (08:30)
[2021-07-06] MEDS ORDERED: Ondansetron 4 MG/2 ML VIAL ONE (08:31)
[2021-07-06] MEDS ORDERED: *HR* Succinylcholine 200 MG/10 ML VIAL IVP ONE (08:31)
[2021-07-06] MEDS ORDERED: *HR* FentaNYL (PF) 100 MCG/2 ML VIAL ONE (08:32)
[2021-07-06] MEDS ORDERED: *HR* Midazolam HCl 2 MG/2 ML VIAL ONE (08:32)
[2021-07-06] MEDS ORDERED: *HR* Propofol 200 MG/20 ML VIAL IVP ONE ×3 (08:32→10:31)
[2021-07-06] MEDS ORDERED: *HR* FentaNYL (PF) 100 MCG/2 ML VIAL IVP PRN (10:14)
[2021-07-06] MEDS ORDERED: Nitroglycerin 0.4 MG TAB.SUBL SL PRN (10:14)
[2021-07-06] MEDS ORDERED: Naloxone 0.4 MG/ML INJ IVP PRN (10:14)
[2021-07-06] MEDS ORDERED: Albuterol 2.5 MG/3 ML NEBULIZER IH PRN (10:14)
[2021-07-06] MEDS ORDERED: Ipratropium Neb 0.5 MG NEBULIZER IH PRN (10:14)
[2021-07-06] MEDS ORDERED: *HR* Metoprolol 5 MG/5 ML VIAL IVP PRN (10:14)
[2021-07-06] MEDS ORDERED: *HR* LORazepam 2 MG/ML VIAL IVP ONE (10:18)
[2021-07-06] MEDS: Azithromycin 500 MG in 0.9 % Sodium Chloride 250 ML IVPB SCH (12:12)
[2021-07-06 14:31] LABS: Appearance of Body Fluid Clear (Clear); Volume of Body Fluid 14 mL
[2021-07-06] MEDS: hydrOXYzine pamoate 25 MG CAPSULE PO PRN (17:36)
[2021-07-06] MEDS: Insulin DETEMIR 100 UNIT/ML X5UNITS SUBQ SCH (20:41)
[2021-07-07] MEDS: Acetaminophen 325 MG TABLET PO PRN (03:48)
[2021-07-07] MEDS: hydrOXYzine pamoate 25 MG CAPSULE PO PRN ×3 (03:48→16:25)
[2021-07-07] MEDS: Ipratropium/Albuterol Neb 3 ML IH SCH ×5 (04:09→20:07)
[2021-07-07] MEDS: MethylPREDNISolone 40 MG/ML VIAL IVP SCH ×4 (05:56→18:16)
[2021-07-07] MEDS: *HR* Enoxaparin 40 MG/0.4 ML SYRINGE SQ SCH (05:56)
[2021-07-07] MEDS: Piperacillin/Tazobactam 3.375 GM in 0.9 % Sodium Chloride Mini Bag 100 ML IVPB SCH ×3 (05:56→22:02)
[2021-07-07 06:28] LABS: Basophils % 0.2 %; Red Cell Distribution Width 14.1 % (11.5-14.5)
[2021-07-07 06:30] LABS: Basophils # 0.1 K/mcL (0.0-0.2); Hematocrit 39.1 % (35.3-44.9); Hemoglobin 13.1 g/dL (11.5-15.4); Immature Granulocytes % 2.2 % (0-4); Lymphocytes # 1.8 K/mcL (0.6-4.6); Lymphocytes % 6.9 %; Mean Corpuscular HGB Conc 33.5 g/dL (31.6-35.5); Mean Corpuscular Hemoglobin 30.1 pg (28.0-33.3); Mean Corpuscular Volume 89.9 fL (83.0-100.0); Mean Platelet Volume 9.3 fL (9.4-12.4); Monocytes # 1.6 K/mcL (0.0-1.3); Monocytes % 5.8 %; Neutrophils # 22.7 K/mcL (1.6-8.9); Nucleated Red Blood Cells 0.3 /100 WBC (0); Platelet Count 525 K/mcL (140-400); Red Blood Count 4.35 M/mcL (3.82-4.97); Segmented Neutrophils % 84.9 %; White Blood Count 26.7 K/mcL (4.3-11.1)
[2021-07-07 06:49] LABS: BUN/Creatinine Ratio 33 (6-26); Blood Urea Nitrogen 21 mg/dL (6-20); Calcium 8.3 mg/dL (8.6-10.3); Carbon Dioxide 25 mEq/L (23-29); Chloride 101 mEq/L (98-107); Glucose 245 mg/dL (70-105); Osmolality,Calculated 289 (280-300); Potassium 4.3 mEq/L (3.5-5.1); Sodium 134 mEq/L (136-145); eGFR For African Americans > 60 (> 60); eGFR For Non-African Americans > 60 (> 60)
[2021-07-07 06:56] LABS: Platelet Estimate Increased (Normal)
[2021-07-07] MEDS: Budesonide/Formoterol 80/4.5 1 PUFF INH IH SCH ×2 (07:47→20:07)
[2021-07-07] MEDS: tiZANidine 4 MG TABLET PO SCH ×3 (08:35→20:17)
[2021-07-07] MEDS: Gabapentin 300 MG CAPSULE PO SCH ×3 (08:35→20:15)
[2021-07-07] MEDS: BuPROPion XL (24 HR) 150 MG TABLET PO SCH (08:35)
[2021-07-07] MEDS: FLUoxetine 20 MG CAPSULE PO SCH (08:35)
[2021-07-07] MEDS: Insulin LISPRO 300 UNITS/3 ML VIAL SUBQ SCH ×4 (08:36→20:14)
[2021-07-07] MEDS: Azithromycin 500 MG in 0.9 % Sodium Chloride 250 ML IVPB SCH (11:57)
[2021-07-07] MEDS: Insulin DETEMIR 100 UNIT/ML X5UNITS SUBQ SCH (20:14)
[2021-07-07] MEDS: Melatonin 3 MG TABLET PO PRN (20:15)
[2021-07-08] MEDS: Ipratropium/Albuterol Neb 3 ML IH SCH ×7 (00:29→23:51)
[2021-07-08] MEDS: *HR* Enoxaparin 40 MG/0.4 ML SYRINGE SQ SCH (05:22)
[2021-07-08] MEDS: Piperacillin/Tazobactam 3.375 GM in 0.9 % Sodium Chloride Mini Bag 100 ML IVPB SCH ×3 (05:22→18:33)
[2021-07-08] MEDS: MethylPREDNISolone 40 MG/ML VIAL IVP SCH ×2 (05:22→18:38)
[2021-07-08] MEDS: hydrOXYzine pamoate 25 MG CAPSULE PO PRN ×2 (05:26→20:01)
[2021-07-08] MEDS: Budesonide/Formoterol 80/4.5 1 PUFF INH IH SCH ×2 (07:49→20:20)
[2021-07-08] MEDS: FLUoxetine 20 MG CAPSULE PO SCH (08:28)
[2021-07-08] MEDS: tiZANidine 4 MG TABLET PO SCH ×3 (08:29→20:01)
[2021-07-08] MEDS: Acetaminophen 325 MG TABLET PO PRN ×2 (08:29→15:15)
[2021-07-08] MEDS: Gabapentin 300 MG CAPSULE PO SCH ×3 (08:29→20:00)
[2021-07-08] MEDS: Insulin LISPRO 300 UNITS/3 ML VIAL SUBQ SCH ×4 (08:30→20:01)
[2021-07-08] MEDS: BuPROPion XL (24 HR) 150 MG TABLET PO SCH (08:30)
[2021-07-08 09:30] LABS: Hemoglobin 13.7 g/dL (11.5-15.4); Nucleated Red Blood Cells 0.2 /100 WBC (0)
[2021-07-08 09:32] LABS: Mean Corpuscular HGB Conc 33.4 g/dL (31.6-35.5); Mean Corpuscular Hemoglobin 29.9 pg (28.0-33.3); Mean Corpuscular Volume 89.5 fL (83.0-100.0); Mean Platelet Volume 9.4 fL (9.4-12.4); Platelet Count 528 K/mcL (140-400); Red Blood Count 4.58 M/mcL (3.82-4.97); Red Cell Distribution Width 13.9 % (11.5-14.5); White Blood Count 27.1 K/mcL (4.3-11.1)
[2021-07-08 09:50] LABS: BUN/Creatinine Ratio 32 (6-26); Blood Urea Nitrogen 23 mg/dL (6-20); Calcium 7.9 mg/dL (8.6-10.3); Carbon Dioxide 25 mEq/L (23-29); Chloride 100 mEq/L (98-107); Glucose 359 mg/dL (70-105); Magnesium 1.8 mg/dL (1.6-2.6); Osmolality,Calculated 292 (280-300); Potassium 4.1 mEq/L (3.5-5.1); Sodium 132 mEq/L (136-145); eGFR For African Americans > 60 (> 60); eGFR For Non-African Americans > 60 (> 60)
[2021-07-08 09:53] LABS: Lymphocytes # 7.1 K/mcL (0.6-4.6); Monocytes # 1.6 K/mcL (0.0-1.3); Neutrophils # 18.4 K/mcL (1.6-8.9)
[2021-07-08] MEDS: Azithromycin 500 MG in 0.9 % Sodium Chloride 250 ML IVPB SCH (11:36)
[2021-07-08] MEDS ORDERED: Insulin Human Regular 5 UNIT in 0.9 % Sodium Chloride 10 ML IV ONE (15:01)
[2021-07-08] MEDS: Melatonin 3 MG TABLET PO PRN (20:01)
[2021-07-08] MEDS ORDERED: Insulin DETEMIR 100 UNIT/ML X5UNITS SUBQ SCH (21:00)
[2021-07-08] MEDS ORDERED: Ibuprofen 400 MG TABLET PO ONE (21:30)
[2021-07-08] MEDS: Ondansetron 4 MG/2 ML VIAL IVP PRN (21:37)
[2021-07-09 01:58] LABS: Influenza A PCR Body Fluid NOT DETECTED; Influenza B PCR Body Fluid NOT DETECTED; RVP Body Fluid Source BAL
[2021-07-09] MEDS: Piperacillin/Tazobactam 3.375 GM in 0.9 % Sodium Chloride Mini Bag 100 ML IVPB SCH (02:01)
[2021-07-09] MEDS: Ipratropium/Albuterol Neb 3 ML IH SCH ×2 (03:54→07:51)
[2021-07-09] MEDS: MethylPREDNISolone 40 MG/ML VIAL IVP SCH (06:15)
[2021-07-09] MEDS: *HR* Enoxaparin 40 MG/0.4 ML SYRINGE SQ SCH (06:15)
[2021-07-09 06:52] VITALS: BP 117/76; PULSE 73; TEMP 97.9
[2021-07-09] MEDS: Budesonide/Formoterol 80/4.5 1 PUFF INH IH SCH (07:50)
[2021-07-09] MEDS: FLUoxetine 20 MG CAPSULE PO SCH (08:06)
[2021-07-09] MEDS: tiZANidine 4 MG TABLET PO SCH (08:06)
[2021-07-09] MEDS: BuPROPion XL (24 HR) 150 MG TABLET PO SCH (08:06)
[2021-07-09] MEDS: Gabapentin 300 MG CAPSULE PO SCH (08:06)
[2021-07-09] MEDS: Insulin LISPRO 300 UNITS/3 ML VIAL SUBQ SCH (08:07)
[2021-07-09 09:05] VITALS: O2SAT 96
[2021-07-10 00:40] LABS: A.galactomannan Ag Index 0.03
[2021-07-10 16:11] LABS: RSV PCR Body Fluid NOT DETECTED
[2021-07-10 16:13] LABS: ANA IgG by ELISA NONE DETECTED (None Detected)
[2021-07-10 22:48] LABS: ANCA IFA Titer <1:20 (<1:20)
[2021-07-11 11:01] LABS: ANCA IFA Pattern NONE DETECTED (None Detected); Serine Protease-3 Antibody 1 AU/mL (0-19)
== END 2021-07-09 11:07 | disposition home or self-care (01) | DRG 720 ==
LOC: 2NNU → 3NENU 07-06 23:12
PROVIDERS: ADMIT Family Medicine; ATTEND Family Medicine

== ENCOUNTER 2021-07-20 23:54 | Inpatient (IN) ==
[2021-07-21] MEDS ORDERED: Naloxone 0.4 MG/ML INJ IVP PRN (01:49)
[2021-07-21] MEDS ORDERED: Melatonin 3 MG TABLET PO PRN (01:49)
[2021-07-21] MEDS ORDERED: Acetaminophen 325 MG TABLET PO PRN ×2 (01:49→12:42)
[2021-07-21] MEDS ORDERED: Saliva Stimulant 44.3ml BOTTLE PO PRN (02:11)
[2021-07-21] MEDS ORDERED: Saline Nasal Spray 44 ML BOTTLE NS PRN (02:11)
[2021-07-21] MEDS ORDERED: Insulin Human Regular 5 UNIT in 0.9 % Sodium Chloride 10 ML IV ONE (02:30)
[2021-07-21] MEDS ORDERED: Ketorolac 30 MG/ML VIAL IVP ONE ×2 (02:45→12:41)
[2021-07-21] MEDS ORDERED: 0.9 % Sodium Chloride 1,000 ML IVC SCH ×2 (03:00→10:35)
[2021-07-21] MEDS ORDERED: Azithromycin 250 MG TABLET PO SCH (03:00)
[2021-07-21] MEDS ORDERED: 0.9 % Sodium Chloride 1,000 ML IVC ONE (03:11)
[2021-07-21 03:44] LABS: Basophils % 0.2 %; Eosinophils % 0.1 %; Immature Granulocytes % 0.9 % (0-4); Red Cell Distribution Width 13.8 % (11.5-14.5)
[2021-07-21 03:46] LABS: Basophils # 0.1 K/mcL (0.0-0.2); Hematocrit 38.7 % (35.3-44.9); INR 1.2; Lymphocytes # 5.4 K/mcL (0.6-4.6); Lymphocytes % 13.2 %; Mean Corpuscular HGB Conc 33.6 g/dL (31.6-35.5); Mean Corpuscular Volume 89.2 fL (83.0-100.0); Mean Platelet Volume 10.3 fL (9.4-12.4); Monocytes # 3.1 K/mcL (0.0-1.3); Monocytes % 7.4 %; Neutrophils # 32.2 K/mcL (1.6-8.9); Platelet Count 343 K/mcL (140-400); Prothrombin Time 13.5 Seconds (9.4-12.1); Red Blood Count 4.34 M/mcL (3.82-4.97); Segmented Neutrophils % 78.2 %
[2021-07-21 03:48] LABS: Activated Partial Thrombo Time 32.6 Seconds (26.0-36.0)
[2021-07-21] MEDS: Ipratropium/Albuterol Neb 3 ML IH SCH ×5 (03:48→20:06)
[2021-07-21 03:50] LABS: Bilirubin,Urine Negative (Negative); Blood,Urine Small (Negative); Clarity,Urine Clear (Clear); Color,Urine Light-Yellow (Yellow); Glucose,Urine (UA) 100 mg/dL (Normal); Ketones,Urine Negative (Negative); Leukocyte Esterase,Urine Negative (Negative); Mucus,Urine Few per lpf (None-Few); Nitrite,Urine Negative (Negative); PH,Urine 6.5 pH Units (5.0-8.0); Protein,Urine Negative (Neg-Trace); RBC,Urine 0-3 per hpf (0-3); Specific Gravity,Urine 1.009 (1.010-1.025); Squamous Epithelial Cell,Urine Few per hpf (None-Few); Urobilinogen,Urine Normal (Normal); WBC,Urine 0-3 per hpf (0-3)
[2021-07-21 03:51] LABS: White Blood Count 41.2 K/mcL (4.3-11.1)
[2021-07-21 04:00] LABS: Alanine Aminotransferase 58 Units/L (7-52); Albumin 3.3 g/dL (3.5-5.7); Albumin/Globulin Ratio 1.1 (1.1-2.2); Alkaline Phosphatase 94 Units/L (34-104); Aspartate Amino Transferase 51 Units/L (13-39); BUN/Creatinine Ratio 10 (6-26); Bilirubin,Total 0.6 mg/dL (0.3-1.0); Blood Urea Nitrogen 7 mg/dL (6-20); Carbon Dioxide 22 mEq/L (23-29); Chloride 103 mEq/L (98-107); Globulin 2.9 g/dL (2.4-3.5); Glucose 259 mg/dL (70-105); Magnesium 1.5 mg/dL (1.6-2.6); Osmolality,Calculated 289 (280-300); Phosphorous 2.8 mg/dL (2.7-4.5); Potassium 3.8 mEq/L (3.5-5.1); Sodium 136 mEq/L (136-145); Total Protein 6.2 g/dL (6.4-8.9); eGFR For African Americans > 60 (> 60); eGFR For Non-African Americans > 60 (> 60)
[2021-07-21 04:57] LABS: Adenovirus Not Detected (Not Detect); Coronavirus 229E Not Detected (Not Detect); Coronavirus HKU1 Not Detected (Not Detect); Coronavirus NL63 Not Detected (Not Detect); Coronavirus OC43 Not Detected (Not Detect); Human Metapneumovirus Not Detected (Not Detect); Human Rhinovirus/Enterovirus Not Detected (Not Detect); SARS-CoV-2 Not Detected (Not Detect)
[2021-07-21 04:58] LABS: Bordetella Pertussis Not Detected (Not Detect); Chlamydophila pneumoniae Not Detected (Not Detect); Influenza A Subtype 2009 H1 Not Detected (Not Detect); Influenza B Not Detected (Not Detect); Mycoplasma pneumoniae Not Detected (Not Detect); Parainfluenza Virus 1 Not Detected (Not Detect); Parainfluenza Virus 2 Not Detected (Not Detect); Parainfluenza Virus 3 Not Detected (Not Detect); Parainfluenza Virus 4 Not Detected (Not Detect); Respiratory Syncytial Virus Not Detected (Not Detect)
[2021-07-21] MEDS ORDERED: *HR* Enoxaparin 40 MG/0.4 ML SYRINGE SQ SCH (06:00)
[2021-07-21] MEDS: Budesonide/Formoterol 160/4.5 1 PUFF INH IH SCH ×2 (07:12→20:06)
[2021-07-21] MEDS: Artificial Tears SOLN 15 ML BOTTLE BOTH EYES SCH ×4 (08:38→20:48)
[2021-07-21] MEDS: Chlorhexidine Rinse 15 ML MOUTHWASH MM SCH ×2 (08:39→20:48)
[2021-07-21] MEDS: Lactobacillus 1 EACH CAP.SPRINK PO SCH ×2 (08:40→20:48)
[2021-07-21] MEDS ORDERED: Insulin DETEMIR 100 UNIT/ML X5UNITS SUBQ SCH (09:00)
[2021-07-21] MEDS ORDERED: predniSONE 20 MG TABLET PO SCH ×2 (09:00)
[2021-07-21] MEDS ORDERED: Nicotine 21 MG PATCH.TD24 TD SCH (09:00)
[2021-07-21] MEDS ORDERED: cefTRIAXone 1,000 MG in 0.9 % Sodium Chloride Mini Bag 100 ML IVPB SCH (09:00)
[2021-07-21 09:25] LABS: Estimated Average Glucose 203 mg/dl; Hemoglobin A1C 8.7 %
[2021-07-21] MEDS: Ondansetron 4 MG/2 ML VIAL IVP PRN ×2 (13:00→20:07)
[2021-07-21] MEDS: Insulin LISPRO 300 UNITS/3 ML VIAL SUBQ SCH ×3 (13:28→18:36)
[2021-07-21] MEDS ORDERED: Piperacillin/Tazobactam 3.375 GM in 0.9 % Sodium Chloride Mini Bag 100 ML IVPB SCH (16:00)
[2021-07-21] MEDS ORDERED: polyethylene glycoL 3350 17 GM POWD.PACK PO PRN (16:13)
[2021-07-21] MEDS ORDERED: Doxycycline 100 MG in 0.9 % Sodium Chloride Mini Bag 100 ML IVPB SCH (18:00)
[2021-07-21 19:02] VITALS: BP 112/73; PULSE 52; TEMP 97.5
[2021-07-21 20:08] VITALS: O2SAT 98
[2021-07-21] MEDS ORDERED: Insulin LISPRO 300 UNITS/3 ML VIAL SUBQ SCH (21:00)
[2021-07-21] MEDS ORDERED: BuPROPion SR (12 HR) 150 MG TABLET PO SCH (21:00)
[2021-07-21] MEDS ORDERED: Gabapentin 300 MG CAPSULE PO SCH (21:00)
[2021-07-22] MEDS ORDERED: predniSONE 20 MG TABLET PO SCH (09:00)
[2021-07-22] MEDS ORDERED: FLUoxetine 20 MG CAPSULE PO SCH (09:00)
[2021-07-22] MEDS ORDERED: Insulin DETEMIR 100 UNIT/ML X5UNITS SUBQ SCH (21:00)
[2021-07-24 00:27] LABS: Mycoplasma pneumoniae IgG 0.07 U/L (<=0.09)
== END 2021-07-21 20:40 | disposition left against medical advice (07) | DRG 720 ==
LOC: 3NENU → SUATTDRO 07-21 01:21
PROVIDERS: ADMIT Internal Medicine; ATTEND Internal Medicine

== ENCOUNTER 2021-10-20 15:00 | Inpatient (IN) ==
[2021-10-20] MEDS ORDERED: Ondansetron 4 MG/2 ML VIAL IVP PRN (17:50)
[2021-10-20] MEDS ORDERED: Naloxone 0.4 MG/ML INJ IVP PRN (17:50)
[2021-10-20] MEDS ORDERED: Nitroglycerin 0.4 MG TAB.SUBL SL PRN (17:54)
[2021-10-20] MEDS ORDERED: Vancomycin (wt based) 1,000 MG VIAL IVPB SCH (18:00)
[2021-10-20 18:31] LABS: Basophils # 0.1 K/mcL (0.0-0.2); Basophils % 0.2 %; Hematocrit 37.1 % (35.3-44.9); Immature Granulocytes % 1.4 % (0-4); Lymphocytes # 1.9 K/mcL (0.6-4.6); Mean Corpuscular HGB Conc 32.3 g/dL (31.6-35.5); Mean Corpuscular Hemoglobin 29.2 pg (28.0-33.3); Mean Corpuscular Volume 90.3 fL (83.0-100.0); Mean Platelet Volume 9.8 fL (9.4-12.4); Monocytes # 0.7 K/mcL (0.0-1.3); Monocytes % 1.8 %; Nucleated Red Blood Cells 0.1 /100 WBC (0); Platelet Count 414 K/mcL (140-400); Red Blood Count 4.11 M/mcL (3.82-4.97); Red Cell Distribution Width 14.4 % (11.5-14.5); Segmented Neutrophils % 91.6 %
[2021-10-20 18:34] LABS: Neutrophils # 34.5 K/mcL (1.6-8.9); White Blood Count 37.7 K/mcL (4.3-11.1)
[2021-10-20 18:37] LABS: INR 1.3; Prothrombin Time 14.1 Seconds (9.4-12.1)
[2021-10-20] MEDS ORDERED: Ketorolac 30 MG/ML VIAL IVP ONE (18:37)
[2021-10-20 18:50] LABS: Magnesium 1.5 mg/dL (1.6-2.6)
[2021-10-20 18:53] LABS: BUN/Creatinine Ratio 26 (6-26); Blood Urea Nitrogen 15 mg/dL (6-20); Calcium 8.1 mg/dL (8.6-10.3); Carbon Dioxide 22 mEq/L (23-29); Chloride 108 mEq/L (98-107); Glucose 281 mg/dL (70-105); Osmolality,Calculated 295 (280-300); Potassium 4.3 mEq/L (3.5-5.1); Sodium 137 mEq/L (136-145); eGFR For African Americans > 60 (> 60); eGFR For Non-African Americans > 60 (> 60)
[2021-10-20] MEDS: Ipratropium/Albuterol Neb 3 ML IH SCH ×2 (19:36→22:59)
[2021-10-20] MEDS: Vancomycin 1,250 MG/262.5 ML IV.SOLN IVPB SCH (20:30)
[2021-10-20] MEDS ORDERED: Perflutren Lipid Microsphere 1.3 ML in 0.9 % Sodium Chloride 8.7 ML IVP PRN (22:35)
[2021-10-20] MEDS ORDERED: *HR* Dextrose 50 % in Water (Syg) 50 ML SYRINGE IVP PRN (22:38)
[2021-10-20] MEDS ORDERED: D5% in Water 1,000 ML IVC PRN (22:38)
[2021-10-20] MEDS ORDERED: Dextrose Gel 15 GM/37.5 ML TUBE PO PRN ×2 (22:38)
[2021-10-21] MEDS: Cefepime HCl 2,000 MG in 0.9 % Sodium Chloride 10 ML IVP SCH ×3 (00:03→17:28)
[2021-10-21] MEDS: MethylPREDNISolone 40 MG/ML VIAL IVP SCH ×3 (00:04→17:29)
[2021-10-21] MEDS: Insulin LISPRO 300 UNITS/3 ML VIAL SUBQ SCH ×4 (00:08→18:33)
[2021-10-21] MEDS ORDERED: *HR* LORazepam 0.5 MG TABLET PO ONE (01:53)
[2021-10-21] MEDS: Ketorolac 30 MG/ML VIAL IVP PRN ×3 (02:07→13:08)
[2021-10-21] MEDS: Ipratropium/Albuterol Neb 3 ML IH SCH ×6 (03:30→22:59)
[2021-10-21] MEDS: *HR* Enoxaparin 40 MG/0.4 ML SYRINGE SQ SCH (05:17)
[2021-10-21 07:00] LABS: Monocytes % 2.2 %; Nucleated Red Blood Cells 0.1 /100 WBC (0); Red Cell Distribution Width 14.6 % (11.5-14.5); Segmented Neutrophils % 89.8 %
[2021-10-21 07:02] LABS: Basophils # 0.1 K/mcL (0.0-0.2); Basophils % 0.3 %; Hematocrit 36.4 % (35.3-44.9); Hemoglobin 11.5 g/dL (11.5-15.4); Immature Granulocytes % 1.2 % (0-4); Lymphocytes % 6.5 %; Mean Corpuscular HGB Conc 31.6 g/dL (31.6-35.5); Mean Corpuscular Hemoglobin 29.2 pg (28.0-33.3); Mean Corpuscular Volume 92.4 fL (83.0-100.0); Monocytes # 0.7 K/mcL (0.0-1.3); Neutrophils # 27.1 K/mcL (1.6-8.9); Platelet Count 405 K/mcL (140-400); Red Blood Count 3.94 M/mcL (3.82-4.97)
[2021-10-21 07:26] LABS: BUN/Creatinine Ratio 37 (6-26); Blood Urea Nitrogen 19 mg/dL (6-20); Carbon Dioxide 23 mEq/L (23-29); Chloride 109 mEq/L (98-107); Glucose 170 mg/dL (70-105); Osmolality,Calculated 292 (280-300); Potassium 4.4 mEq/L (3.5-5.1); Sodium 138 mEq/L (136-145); eGFR For African Americans > 60 (> 60); eGFR For Non-African Americans > 60 (> 60)
[2021-10-21 08:17] LABS: White Blood Count 30.2 K/mcL (4.3-11.1)
[2021-10-21] MEDS: Vancomycin 1,250 MG/262.5 ML IV.SOLN IVPB SCH ×2 (08:35→21:09)
[2021-10-21] MEDS ORDERED: FLUoxetine 20 MG CAPSULE PO SCH (09:00)
[2021-10-21] MEDS: *HR* LORazepam 0.5 MG TABLET PO PRN ×3 (09:25→18:29)
[2021-10-21] MEDS: BuPROPion SR (12 HR) 150 MG TABLET PO SCH ×2 (09:26→20:57)
[2021-10-21] MEDS: Azithromycin 500 MG in 0.9 % Sodium Chloride 250 ML IVPB SCH (11:47)
[2021-10-21] MEDS ORDERED: Loratadine 10 MG TABLET PO PRN (12:24)
[2021-10-21] MEDS: Gabapentin 300 MG CAPSULE PO SCH ×2 (17:28→21:09)
[2021-10-21] MEDS: Budesonide/Formoterol 80/4.5 1 PUFF INH IH SCH (19:51)
[2021-10-21] MEDS: hydrOXYzine pamoate 25 MG CAPSULE PO PRN (20:35)
[2021-10-21] MEDS ORDERED: *HR* LORazepam 2 MG/ML VIAL IVP ONE (20:53)
[2021-10-21] MEDS: Acetaminophen 325 MG TABLET PO PRN (20:57)
[2021-10-21] MEDS: tiZANidine 4 MG TABLET PO SCH (20:57)
[2021-10-21] MEDS: Ibuprofen 800 MG TABLET PO SCH (21:08)
[2021-10-21] MEDS: Insulin DETEMIR 100 UNIT/ML X5UNITS SUBQ SCH (21:08)
[2021-10-22] MEDS: Cefepime HCl 2,000 MG in 0.9 % Sodium Chloride 10 ML IVP SCH ×4 (00:32→23:40)
[2021-10-22] MEDS: MethylPREDNISolone 40 MG/ML VIAL IVP SCH ×2 (00:32→07:52)
[2021-10-22] MEDS: Insulin LISPRO 300 UNITS/3 ML VIAL SUBQ SCH ×4 (00:32→16:22)
[2021-10-22] MEDS: *HR* LORazepam 0.5 MG TABLET PO PRN ×4 (01:34→19:00)
[2021-10-22] MEDS: Acetaminophen 325 MG TABLET PO PRN ×2 (01:34→21:14)
[2021-10-22 02:06] LABS: Lymphocytes % 8.8 %; Nucleated Red Blood Cells 0.2 /100 WBC (0); Red Cell Distribution Width 14.7 % (11.5-14.5)
[2021-10-22 02:08] LABS: Basophils # 0.1 K/mcL (0.0-0.2); Basophils % 0.2 %; Hematocrit 36.9 % (35.3-44.9); Hemoglobin 11.7 g/dL (11.5-15.4); Immature Granulocytes % 1.7 % (0-4); Mean Corpuscular HGB Conc 31.7 g/dL (31.6-35.5); Mean Corpuscular Volume 91.6 fL (83.0-100.0); Mean Platelet Volume 10.1 fL (9.4-12.4); Monocytes # 0.8 K/mcL (0.0-1.3); Monocytes % 2.7 %; Neutrophils # 26.9 K/mcL (1.6-8.9); Platelet Count 471 K/mcL (140-400); Red Blood Count 4.03 M/mcL (3.82-4.97); Segmented Neutrophils % 86.6 %
[2021-10-22 02:12] LABS: Lymphocytes # 2.7 K/mcL (0.6-4.6); White Blood Count 31.1 K/mcL (4.3-11.1)
[2021-10-22 02:25] LABS: BUN/Creatinine Ratio 27 (6-26); Blood Urea Nitrogen 15 mg/dL (6-20); Calcium 7.6 mg/dL (8.6-10.3); Carbon Dioxide 23 mEq/L (23-29); Chloride 109 mEq/L (98-107); Glucose 236 mg/dL (70-105); Osmolality,Calculated 294 (280-300); Potassium 4.7 mEq/L (3.5-5.1); Sodium 138 mEq/L (136-145); eGFR For African Americans > 60 (> 60); eGFR For Non-African Americans > 60 (> 60)
[2021-10-22 02:50] LABS: Hypochromasia Present (Not Present); Large Platelets Present (Not Present)
[2021-10-22] MEDS: Ipratropium/Albuterol Neb 3 ML IH SCH ×6 (03:37→23:52)
[2021-10-22] MEDS: *HR* Enoxaparin 40 MG/0.4 ML SYRINGE SQ SCH (06:12)
[2021-10-22] MEDS: *HR* HYDROcodone/Acet 5/325 mg TABLET PO PRN ×3 (06:21→19:01)
[2021-10-22] MEDS: Nicotine 21 MG PATCH.TD24 TD SCH ×2 (07:31→07:52)
[2021-10-22] MEDS ORDERED: hydrOXYzine pamoate 25 MG CAPSULE PO STA (07:33)
[2021-10-22] MEDS: Budesonide/Formoterol 80/4.5 1 PUFF INH IH SCH ×2 (07:48→20:16)
[2021-10-22] MEDS: FLUoxetine 20 MG CAPSULE PO SCH (07:51)
[2021-10-22] MEDS: Gabapentin 300 MG CAPSULE PO SCH ×3 (07:51→21:14)
[2021-10-22] MEDS: BuPROPion SR (12 HR) 150 MG TABLET PO SCH ×2 (07:51→21:14)
[2021-10-22] MEDS: Insulin DETEMIR 100 UNIT/ML X5UNITS SUBQ SCH ×2 (07:52→22:59)
[2021-10-22] MEDS: Ibuprofen 800 MG TABLET PO SCH (07:52)
[2021-10-22] MEDS: tiZANidine 4 MG TABLET PO SCH ×2 (07:52→21:14)
[2021-10-22] MEDS: Vancomycin 1,250 MG/262.5 ML IV.SOLN IVPB SCH (08:03)
[2021-10-22] MEDS: Azithromycin 500 MG in 0.9 % Sodium Chloride 250 ML IVPB SCH (11:39)
[2021-10-22] MEDS: Furosemide 40 MG/4 ML VIAL IVP SCH (11:39)
[2021-10-22] MEDS: predniSONE 20 MG TABLET PO SCH (15:14)
[2021-10-22] MEDS: hydrOXYzine pamoate 25 MG CAPSULE PO PRN (15:18)
[2021-10-23 02:14] LABS: Eosinophils % 0.1 %; Immature Granulocytes % 2.4 % (0-4); Nucleated Red Blood Cells 0.3 /100 WBC (0); Red Cell Distribution Width 14.6 % (11.5-14.5)
[2021-10-23 02:16] LABS: Basophils # 0.1 K/mcL (0.0-0.2); Basophils % 0.3 %; Hemoglobin 11.8 g/dL (11.5-15.4); Lymphocytes # 3.2 K/mcL (0.6-4.6); Lymphocytes % 12.2 %; Mean Corpuscular HGB Conc 31.9 g/dL (31.6-35.5); Mean Corpuscular Volume 90.9 fL (83.0-100.0); Mean Platelet Volume 9.9 fL (9.4-12.4); Monocytes # 0.7 K/mcL (0.0-1.3); Monocytes % 2.5 %; Neutrophils # 21.7 K/mcL (1.6-8.9); Platelet Count 433 K/mcL (140-400); Red Blood Count 4.07 M/mcL (3.82-4.97); Segmented Neutrophils % 82.5 %; White Blood Count 26.3 K/mcL (4.3-11.1)
[2021-10-23 02:35] LABS: BUN/Creatinine Ratio 28 (6-26); Blood Urea Nitrogen 15 mg/dL (6-20); Calcium 7.8 mg/dL (8.6-10.3); Carbon Dioxide 22 mEq/L (23-29); Chloride 107 mEq/L (98-107); Glucose 327 mg/dL (70-105); Osmolality,Calculated 298 (280-300); Potassium 4.1 mEq/L (3.5-5.1); Sodium 137 mEq/L (136-145); eGFR For African Americans > 60 (> 60); eGFR For Non-African Americans > 60 (> 60)
[2021-10-23 02:37] LABS: Platelet Estimate Increased (Normal)
[2021-10-23] MEDS: *HR* LORazepam 0.5 MG TABLET PO PRN ×4 (03:04→20:39)
[2021-10-23] MEDS: *HR* HYDROcodone/Acet 5/325 mg TABLET PO PRN ×3 (03:04→20:39)
[2021-10-23] MEDS: Ipratropium/Albuterol Neb 3 ML IH SCH ×6 (04:08→22:56)
[2021-10-23] MEDS: *HR* Enoxaparin 40 MG/0.4 ML SYRINGE SQ SCH (05:45)
[2021-10-23] MEDS: hydrOXYzine pamoate 25 MG CAPSULE PO PRN (05:45)
[2021-10-23] MEDS: Acetaminophen 325 MG TABLET PO PRN (05:45)
[2021-10-23] MEDS ORDERED: Lidocaine Viscous Oral Soln 15 ML SOLUTION MM PRN (05:57)
[2021-10-23] MEDS: Budesonide/Formoterol 80/4.5 1 PUFF INH IH SCH ×2 (07:30→20:28)
[2021-10-23] MEDS: Insulin LISPRO 300 UNITS/3 ML VIAL SUBQ SCH ×3 (08:42→17:56)
[2021-10-23] MEDS: Nicotine 21 MG PATCH.TD24 TD SCH (08:42)
[2021-10-23] MEDS: tiZANidine 4 MG TABLET PO SCH ×2 (08:47→20:36)
[2021-10-23] MEDS: Gabapentin 300 MG CAPSULE PO SCH ×3 (08:47→20:36)
[2021-10-23] MEDS: FLUoxetine 20 MG CAPSULE PO SCH (08:47)
[2021-10-23] MEDS: Furosemide 40 MG/4 ML VIAL IVP SCH ×2 (08:47→17:54)
[2021-10-23] MEDS: predniSONE 20 MG TABLET PO SCH (08:47)
[2021-10-23] MEDS: Cefepime HCl 2,000 MG in 0.9 % Sodium Chloride 10 ML IVP SCH ×3 (09:01→23:09)
[2021-10-23] MEDS: Insulin DETEMIR 100 UNIT/ML X5UNITS SUBQ SCH ×2 (09:01→20:36)
[2021-10-23] MEDS: BuPROPion SR (12 HR) 150 MG TABLET PO SCH ×2 (09:02→20:36)
[2021-10-23] MEDS ORDERED: Promethazine Syrup 6.25 MG/5 ML PO PRN (10:11)
[2021-10-23] MEDS: Azithromycin 500 MG in 0.9 % Sodium Chloride 250 ML IVPB SCH (11:43)
[2021-10-23] MEDS: Dexmedetomidine HCl 400 MCG/100 ML MLS IVC SCH (11:44)
[2021-10-24 01:48] LABS: Eosinophils % 2.2 %; Immature Granulocytes % 3.2 % (0-4); Nucleated Red Blood Cells 0.3 /100 WBC (0)
[2021-10-24 01:49] LABS: Basophils # 0.2 K/mcL (0.0-0.2); Basophils % 0.7 %; Eosinophils # 0.7 K/mcL (0.0-0.6); Hematocrit 39.4 % (35.3-44.9); Hemoglobin 12.7 g/dL (11.5-15.4); Lymphocytes # 6.8 K/mcL (0.6-4.6); Lymphocytes % 22.2 %; Mean Corpuscular HGB Conc 32.2 g/dL (31.6-35.5); Mean Corpuscular Hemoglobin 29.1 pg (28.0-33.3); Mean Corpuscular Volume 90.4 fL (83.0-100.0); Mean Platelet Volume 9.5 fL (9.4-12.4); Monocytes # 0.8 K/mcL (0.0-1.3); Monocytes % 2.6 %; Neutrophils # 21.1 K/mcL (1.6-8.9); Platelet Count 358 K/mcL (140-400); Red Blood Count 4.36 M/mcL (3.82-4.97); Red Cell Distribution Width 14.3 % (11.5-14.5); Segmented Neutrophils % 69.1 %
[2021-10-24 01:52] LABS: Platelet Estimate Normal (Normal); White Blood Count 30.6 K/mcL (4.3-11.1)
[2021-10-24 01:58] LABS: BUN/Creatinine Ratio 25 (6-26); Blood Urea Nitrogen 15 mg/dL (6-20); Calcium 8.2 mg/dL (8.6-10.3); Carbon Dioxide 22 mEq/L (23-29); Chloride 104 mEq/L (98-107); Glucose 128 mg/dL (70-105); Osmolality,Calculated 288 (280-300); Potassium 3.6 mEq/L (3.5-5.1); Sodium 138 mEq/L (136-145); eGFR For African Americans > 60 (> 60); eGFR For Non-African Americans > 60 (> 60)
[2021-10-24] MEDS: *HR* HYDROcodone/Acet 5/325 mg TABLET PO PRN ×4 (02:39→21:05)
[2021-10-24] MEDS: *HR* LORazepam 0.5 MG TABLET PO PRN ×4 (02:39→21:06)
[2021-10-24] MEDS: Ipratropium/Albuterol Neb 3 ML IH SCH ×6 (04:00→23:37)
[2021-10-24 04:21] LABS: ABG Base Excess 1 mEq/L (-2 to 3); ABG HCO3 25 mEq/L (21-27); ABG Oxygen Saturation 96 % (95-98); ABG PCO2 37 mmHg (35-45); ABG PH 7.44 pH Units (7.32-7.45); ABG PO2 79 mmHg (85-104); ABG TCO2 26 mEq/L (20-26); Blood Gas Pressure Support 7 cm H2O
[2021-10-24] MEDS: *HR* Enoxaparin 40 MG/0.4 ML SYRINGE SQ SCH (04:34)
[2021-10-24] MEDS ORDERED: Magnesium Sulfate 1 GM/102 ML PIGGYBACK IVPB ONE (05:58)
[2021-10-24] MEDS: Budesonide/Formoterol 80/4.5 1 PUFF INH IH SCH ×2 (07:35→20:26)
[2021-10-24] MEDS: Nicotine 21 MG PATCH.TD24 TD SCH (08:51)
[2021-10-24] MEDS: Insulin LISPRO 300 UNITS/3 ML VIAL SUBQ SCH ×3 (09:00→17:53)
[2021-10-24] MEDS: Dexmedetomidine HCl 400 MCG/100 ML MLS IVC SCH (09:02)
[2021-10-24] MEDS: Furosemide 40 MG/4 ML VIAL IVP SCH (09:02)
[2021-10-24] MEDS: Cefepime HCl 2,000 MG in 0.9 % Sodium Chloride 10 ML IVP SCH ×3 (09:03→23:37)
[2021-10-24] MEDS: tiZANidine 4 MG TABLET PO SCH ×2 (09:04→21:06)
[2021-10-24] MEDS: predniSONE 20 MG TABLET PO SCH (09:04)
[2021-10-24] MEDS: Gabapentin 300 MG CAPSULE PO SCH ×3 (09:04→21:06)
[2021-10-24] MEDS: BuPROPion SR (12 HR) 150 MG TABLET PO SCH ×2 (09:05→21:06)
[2021-10-24] MEDS: FLUoxetine 20 MG CAPSULE PO SCH (09:05)
[2021-10-24] MEDS: hydrOXYzine pamoate 25 MG CAPSULE PO PRN (09:05)
[2021-10-24] MEDS: Insulin DETEMIR 100 UNIT/ML X5UNITS SUBQ SCH (09:29)
[2021-10-24] MEDS: Azithromycin 500 MG in 0.9 % Sodium Chloride 250 ML IVPB SCH (11:32)
[2021-10-24] MEDS ORDERED: methylPREDNISolone 125 MG/2 ML VIAL IVP ONE (11:45)
[2021-10-24 13:12] LABS: Adenovirus Not Detected (Not Detect); Bordetella Pertussis Not Detected (Not Detect); Chlamydophila pneumoniae Not Detected (Not Detect); Coronavirus 229E Not Detected (Not Detect); Coronavirus HKU1 Not Detected (Not Detect); Coronavirus NL63 Not Detected (Not Detect); Coronavirus OC43 Not Detected (Not Detect); Human Metapneumovirus Not Detected (Not Detect); Human Rhinovirus/Enterovirus Not Detected (Not Detect); Influenza A Subtype 2009 H1 Not Detected (Not Detect); Influenza B Not Detected (Not Detect); Mycoplasma pneumoniae Not Detected (Not Detect); Parainfluenza Virus 1 Not Detected (Not Detect); Parainfluenza Virus 2 Not Detected (Not Detect); Parainfluenza Virus 3 Not Detected (Not Detect); Parainfluenza Virus 4 Not Detected (Not Detect); Respiratory Syncytial Virus Not Detected (Not Detect); SARS-CoV-2 Not Detected (Not Detect)
[2021-10-25] MEDS: Dexmedetomidine HCl 400 MCG/100 ML MLS IVC SCH ×3 (00:12→22:11)
[2021-10-25] MEDS: Insulin DETEMIR 100 UNIT/ML X5UNITS SUBQ SCH ×3 (00:53→21:02)
[2021-10-25 01:56] LABS: Hematocrit 38.3 % (35.3-44.9); Hemoglobin 12.6 g/dL (11.5-15.4); Mean Corpuscular HGB Conc 32.9 g/dL (31.6-35.5); Mean Corpuscular Hemoglobin 29.2 pg (28.0-33.3); Mean Corpuscular Volume 88.7 fL (83.0-100.0); Mean Platelet Volume 9.6 fL (9.4-12.4); Platelet Count 356 K/mcL (140-400); Red Blood Count 4.32 M/mcL (3.82-4.97); Red Cell Distribution Width 14.1 % (11.5-14.5); White Blood Count 24.5 K/mcL (4.3-11.1)
[2021-10-25 02:22] LABS: BUN/Creatinine Ratio 35 (6-26); Blood Urea Nitrogen 19 mg/dL (6-20); Calcium 7.9 mg/dL (8.6-10.3); Carbon Dioxide 21 mEq/L (23-29); Chloride 103 mEq/L (98-107); Glucose 287 mg/dL (70-105); Osmolality,Calculated 289 (280-300); Phosphorous 2.2 mg/dL (2.7-4.5); Potassium 4.5 mEq/L (3.5-5.1); Sodium 133 mEq/L (136-145); eGFR For African Americans > 60 (> 60); eGFR For Non-African Americans > 60 (> 60)
[2021-10-25] MEDS: *HR* LORazepam 0.5 MG TABLET PO PRN (03:45)
[2021-10-25] MEDS: Ipratropium/Albuterol Neb 3 ML IH SCH ×6 (04:12→23:18)
[2021-10-25] MEDS ORDERED: HYDROcodone BIT/Homatropine LQ 5 MG/5 ML UDC PO ONE (06:51)
[2021-10-25 06:57] LABS: ABG Base Excess -3 mEq/L (-2 to 3); ABG HCO3 23 mEq/L (21-27); ABG Oxygen Saturation 95 % (95-98); ABG PCO2 42 mmHg (35-45); ABG PH 7.35 pH Units (7.32-7.45); ABG PO2 77 mmHg (85-104); ABG TCO2 24 mEq/L (20-26); Blood Gas Pressure Support 4 cm H2O
[2021-10-25] MEDS: *HR* Enoxaparin 40 MG/0.4 ML SYRINGE SQ SCH (07:03)
[2021-10-25] MEDS: methylPREDNISolone 125 MG/2 ML VIAL IVP SCH ×2 (07:03→17:14)
[2021-10-25] MEDS: Budesonide/Formoterol 80/4.5 1 PUFF INH IH SCH ×2 (07:52→20:39)
[2021-10-25] MEDS: Gabapentin 300 MG CAPSULE PO SCH ×3 (09:00→21:01)
[2021-10-25] MEDS: BuPROPion SR (12 HR) 150 MG TABLET PO SCH ×2 (09:00→21:01)
[2021-10-25] MEDS: FLUoxetine 20 MG CAPSULE PO SCH (09:00)
[2021-10-25] MEDS: tiZANidine 4 MG TABLET PO SCH ×2 (09:00→21:02)
[2021-10-25] MEDS: Insulin LISPRO 300 UNITS/3 ML VIAL SUBQ SCH ×3 (09:01→18:09)
[2021-10-25] MEDS: Cefepime HCl 2,000 MG in 0.9 % Sodium Chloride 10 ML IVP SCH ×2 (09:01→17:15)
[2021-10-25] MEDS: Furosemide 40 MG/4 ML VIAL IVP SCH (09:01)
[2021-10-25] MEDS: Nicotine 21 MG PATCH.TD24 TD SCH (09:10)
[2021-10-25] MEDS ORDERED: *HR* LORazepam 2 MG/ML VIAL IVP ONE (09:51)
[2021-10-25] MEDS: Azithromycin 500 MG in 0.9 % Sodium Chloride 250 ML IVPB SCH (11:57)
[2021-10-25] MEDS: *HR* LORazepam 2 MG/ML VIAL IVP PRN ×2 (14:52→21:01)
[2021-10-26] MEDS: Cefepime HCl 2,000 MG in 0.9 % Sodium Chloride 10 ML IVP SCH ×4 (01:21→23:43)
[2021-10-26] MEDS: *HR* LORazepam 2 MG/ML VIAL IVP PRN ×4 (03:01→21:10)
[2021-10-26] MEDS: Ipratropium/Albuterol Neb 3 ML IH SCH ×6 (03:59→23:30)
[2021-10-26 05:47] LABS: Mean Platelet Volume 10.1 fL (9.4-12.4)
[2021-10-26 05:48] LABS: Hematocrit 39.8 % (35.3-44.9); Hemoglobin 12.7 g/dL (11.5-15.4); Mean Corpuscular HGB Conc 31.9 g/dL (31.6-35.5); Mean Corpuscular Hemoglobin 29.1 pg (28.0-33.3); Mean Corpuscular Volume 91.1 fL (83.0-100.0); Platelet Count 389 K/mcL (140-400); Red Blood Count 4.37 M/mcL (3.82-4.97); Red Cell Distribution Width 14.1 % (11.5-14.5)
[2021-10-26 05:51] LABS: White Blood Count 36.1 K/mcL (4.3-11.1)
[2021-10-26 06:22] LABS: BUN/Creatinine Ratio 32 (6-26); Blood Urea Nitrogen 20 mg/dL (6-20); Calcium 8.1 mg/dL (8.6-10.3); Carbon Dioxide 25 mEq/L (23-29); Chloride 101 mEq/L (98-107); Glucose 195 mg/dL (70-105); Magnesium 1.9 mg/dL (1.6-2.6); Osmolality,Calculated 290 (280-300); Phosphorous 2.5 mg/dL (2.7-4.5); Potassium 4.4 mEq/L (3.5-5.1); Sodium 136 mEq/L (136-145); eGFR For African Americans > 60 (> 60); eGFR For Non-African Americans > 60 (> 60)
[2021-10-26] MEDS: methylPREDNISolone 125 MG/2 ML VIAL IVP SCH ×2 (06:23→16:38)
[2021-10-26] MEDS: *HR* Enoxaparin 40 MG/0.4 ML SYRINGE SQ SCH (06:23)
[2021-10-26] MEDS: Dexmedetomidine HCl 400 MCG/100 ML MLS IVC SCH ×5 (06:24→23:42)
[2021-10-26] MEDS: Insulin LISPRO 300 UNITS/3 ML VIAL SUBQ SCH ×3 (07:55→16:37)
[2021-10-26] MEDS: Insulin DETEMIR 100 UNIT/ML X5UNITS SUBQ SCH ×2 (07:55→21:10)
[2021-10-26] MEDS: Furosemide 40 MG/4 ML VIAL IVP SCH (08:04)
[2021-10-26] MEDS: Pantoprazole 40 MG VIAL IVP SCH (08:04)
[2021-10-26] MEDS: Budesonide/Formoterol 80/4.5 1 PUFF INH IH SCH ×2 (08:07→20:38)
[2021-10-26] MEDS: BuPROPion SR (12 HR) 150 MG TABLET PO SCH ×2 (08:19→21:08)
[2021-10-26] MEDS: tiZANidine 4 MG TABLET PO SCH ×2 (08:19→21:08)
[2021-10-26] MEDS: Gabapentin 300 MG CAPSULE PO SCH ×3 (08:19→21:08)
[2021-10-26] MEDS: FLUoxetine 20 MG CAPSULE PO SCH (08:19)
[2021-10-26] MEDS: Nicotine 21 MG PATCH.TD24 TD SCH (08:22)
[2021-10-26] MEDS ORDERED: Magnesium Sulfate 1 GM/102 ML PIGGYBACK IVPB ONE (09:48)
[2021-10-26] MEDS ORDERED: Lidocaine -MPF 1% 5 ML AMPUL INFILT ONE (09:49)
[2021-10-26] MEDS ORDERED: Ketorolac 30 MG/ML VIAL IVP PRN (11:26)
[2021-10-26] MEDS ORDERED: Ketorolac 30 MG/ML VIAL IVP SCH (12:00)
[2021-10-26] MEDS: *HR* HYDROcodone/Acet 5/325 mg TABLET PO PRN (21:08)
[2021-10-27] MEDS: *HR* LORazepam 2 MG/ML VIAL IVP PRN ×3 (03:47→20:08)
[2021-10-27] MEDS: Ipratropium/Albuterol Neb 3 ML IH SCH ×6 (04:26→23:35)
[2021-10-27 04:43] LABS: Hematocrit 40.1 % (35.3-44.9); Mean Corpuscular HGB Conc 32.4 g/dL (31.6-35.5); Mean Corpuscular Hemoglobin 29.1 pg (28.0-33.3); Mean Corpuscular Volume 89.7 fL (83.0-100.0); Mean Platelet Volume 9.4 fL (9.4-12.4); Platelet Count 392 K/mcL (140-400); Red Blood Count 4.47 M/mcL (3.82-4.97); Red Cell Distribution Width 14.1 % (11.5-14.5)
[2021-10-27 04:51] LABS: White Blood Count 34.3 K/mcL (4.3-11.1)
[2021-10-27 05:02] LABS: BUN/Creatinine Ratio 38 (6-26); Blood Urea Nitrogen 18 mg/dL (6-20); Calcium 7.9 mg/dL (8.6-10.3); Carbon Dioxide 25 mEq/L (23-29); Chloride 103 mEq/L (98-107); Glucose 159 mg/dL (70-105); Magnesium 1.8 mg/dL (1.6-2.6); Osmolality,Calculated 287 (280-300); Phosphorous 2.2 mg/dL (2.7-4.5); Potassium 4.6 mEq/L (3.5-5.1); Sodium 136 mEq/L (136-145); eGFR For African Americans > 60 (> 60); eGFR For Non-African Americans > 60 (> 60)
[2021-10-27] MEDS: *HR* Enoxaparin 40 MG/0.4 ML SYRINGE SQ SCH (05:09)
[2021-10-27] MEDS: methylPREDNISolone 125 MG/2 ML VIAL IVP SCH ×2 (05:09→16:57)
[2021-10-27] MEDS: Dexmedetomidine HCl 400 MCG/100 ML MLS IVC SCH ×4 (05:10→22:03)
[2021-10-27] MEDS: Budesonide/Formoterol 80/4.5 1 PUFF INH IH SCH ×2 (07:26→20:10)
[2021-10-27] MEDS: Insulin LISPRO 300 UNITS/3 ML VIAL SUBQ SCH ×4 (09:32→23:53)
[2021-10-27] MEDS: FLUoxetine 20 MG CAPSULE PO SCH (09:56)
[2021-10-27] MEDS: BuPROPion SR (12 HR) 150 MG TABLET PO SCH ×2 (09:56→19:45)
[2021-10-27] MEDS: tiZANidine 4 MG TABLET PO SCH ×2 (09:56→19:45)
[2021-10-27] MEDS: Gabapentin 300 MG CAPSULE PO SCH ×3 (09:56→19:45)
[2021-10-27] MEDS: Cefepime HCl 2,000 MG in 0.9 % Sodium Chloride 10 ML IVP SCH ×3 (10:28→23:52)
[2021-10-27] MEDS: Pantoprazole 40 MG VIAL IVP SCH (10:28)
[2021-10-27] MEDS: Haloperidol Lactate 5 MG/ML VIAL IVP PRN ×3 (10:29→23:53)
[2021-10-27] MEDS: Furosemide 40 MG/4 ML VIAL IVP SCH (10:29)
[2021-10-27] MEDS: Insulin DETEMIR 100 UNIT/ML X5UNITS SUBQ SCH ×2 (10:31→20:08)
[2021-10-27] MEDS: Nicotine 21 MG PATCH.TD24 TD SCH (10:32)
[2021-10-27] MEDS ORDERED: D10% in Water 500 ML IVC PRN (11:48)
[2021-10-27] MEDS ORDERED: Clinimix E 5%-15% SOLUTION 2,000 ML with MVI, adult with vitamin K 10 ML IVC SCH (17:00)
[2021-10-28] MEDS ORDERED: *HR* LORazepam 2 MG/ML VIAL IVP ONE ×3 (00:29→04:13)
[2021-10-28 00:38] LABS: ABG Base Excess -2 mEq/L (-2 to 3); ABG HCO3 22 mEq/L (21-27); ABG Oxygen Saturation 95 % (95-98); ABG PCO2 36 mmHg (35-45); ABG PH 7.39 pH Units (7.32-7.45); ABG PO2 78 mmHg (85-104); ABG TCO2 23 mEq/L (20-26); Blood Gas Modality ST; Blood Gas Pressure Support 4 cm H2O
[2021-10-28] MEDS: Dexmedetomidine HCl 400 MCG/100 ML MLS IVC SCH ×5 (02:21→19:30)
[2021-10-28] MEDS: Ipratropium/Albuterol Neb 3 ML IH SCH ×6 (03:33→23:38)
[2021-10-28] MEDS ORDERED: Haloperidol Lactate 5 MG/ML VIAL IVP ONE (05:30)
[2021-10-28] MEDS ORDERED: Morphine Sulfate 2 MG/ML SYRINGE ONE (05:36)
[2021-10-28] MEDS ORDERED: *HR* LORazepam 2 MG/ML VIAL ONE (05:37)
[2021-10-28] MEDS ORDERED: *HR* Midazolam HCl 5 MG/5 ML VIAL IVP ONE (06:12)
[2021-10-28] MEDS ORDERED: Cisatracurium 200 MG in 0.9 % Sodium Chloride 80 ML IVC SCH (06:15)
[2021-10-28] MEDS ORDERED: *HR* Rocuronium Bromide 50 MG/5 ML VIAL IVP ONE (06:17)
[2021-10-28] MEDS ORDERED: *HR* Metoprolol 5 MG/5 ML VIAL IVP ONE (06:27)
[2021-10-28] MEDS: Midazolam HCl 50 MG/50 ML IV.SOLN IVC SCH ×2 (06:30→17:28)
[2021-10-28] MEDS: FentaNYL (PF) 1,000 MCG/100 ML IV.SOLN IVC SCH ×3 (06:30→18:41)
[2021-10-28 06:53] LABS: ABG Base Excess -11 mEq/L (-2 to 3); ABG HCO3 20 mEq/L (21-27); ABG Oxygen Saturation 93 % (95-98); ABG PCO2 65 mmHg (35-45); ABG PO2 93 mmHg (85-104); ABG TCO2 22 mEq/L (20-26); Blood Gas VT 380 cc
[2021-10-28] MEDS: Budesonide/Formoterol 80/4.5 1 PUFF INH IH SCH ×2 (07:12→19:44)
[2021-10-28 07:27] LABS: Mean Corpuscular Volume 90.6 fL (83.0-100.0)
[2021-10-28 07:28] LABS: Hematocrit 42.3 % (35.3-44.9); Hemoglobin 13.6 g/dL (11.5-15.4); Mean Corpuscular HGB Conc 32.2 g/dL (31.6-35.5); Mean Corpuscular Hemoglobin 29.1 pg (28.0-33.3); Mean Platelet Volume 9.6 fL (9.4-12.4); Platelet Count 333 K/mcL (140-400); Red Blood Count 4.67 M/mcL (3.82-4.97)
[2021-10-28 07:46] LABS: White Blood Count 38.3 K/mcL (4.3-11.1)
[2021-10-28] MEDS ORDERED: Artificial Tears SOLN 15 ML BOTTLE BOTH EYES PRN (07:50)
[2021-10-28 08:01] LABS: Alanine Aminotransferase 26 Units/L (7-52); Albumin 3.1 g/dL (3.5-5.7); Albumin/Globulin Ratio 1.1 (1.1-2.2); Alkaline Phosphatase 220 Units/L (34-104); Aspartate Amino Transferase 41 Units/L (13-39); BUN/Creatinine Ratio 38 (6-26); Bilirubin,Total 0.5 mg/dL (0.3-1.0); Blood Urea Nitrogen 21 mg/dL (6-20); Calcium 7.7 mg/dL (8.6-10.3); Carbon Dioxide 23 mEq/L (23-29); Chloride 102 mEq/L (98-107); Globulin 2.9 g/dL (2.4-3.5); Glucose 193 mg/dL (70-105); Osmolality,Calculated 294 (280-300); Potassium 4.1 mEq/L (3.5-5.1); Sodium 138 mEq/L (136-145); Triglycerides 105 mg/dL (< 150); eGFR For African Americans > 60 (> 60); eGFR For Non-African Americans > 60 (> 60)
[2021-10-28] MEDS: Insulin LISPRO 300 UNITS/3 ML VIAL SUBQ SCH ×5 (09:06→20:07)
[2021-10-28] MEDS: tiZANidine 4 MG TABLET PO SCH ×2 (09:07→20:08)
[2021-10-28] MEDS: BuPROPion SR (12 HR) 150 MG TABLET PO SCH ×2 (09:07→20:08)
[2021-10-28] MEDS: FLUoxetine 20 MG CAPSULE PO SCH (09:07)
[2021-10-28] MEDS: Gabapentin 300 MG CAPSULE PO SCH ×3 (09:07→20:08)
[2021-10-28] MEDS: Chlorhexidine Rinse 15 ML MOUTHWASH MM SCH ×2 (09:09→20:08)
[2021-10-28] MEDS: Artificial Tears SOLN 15 ML BOTTLE BOTH EYES SCH ×4 (09:09→20:05)
[2021-10-28] MEDS: Cisatracurium 200 MG in 0.9 % Sodium Chloride 80 ML IVC SCH ×2 (09:09→15:56)
[2021-10-28] MEDS: Cefepime HCl 2,000 MG in 0.9 % Sodium Chloride 10 ML IVP SCH ×2 (09:12→15:37)
[2021-10-28] MEDS: Pantoprazole 40 MG VIAL IVP SCH (09:13)
[2021-10-28] MEDS: methylPREDNISolone 125 MG/2 ML VIAL IVP SCH ×3 (09:13→15:37)
[2021-10-28] MEDS: Nicotine 21 MG PATCH.TD24 TD SCH (09:13)
[2021-10-28] MEDS: Furosemide 40 MG/4 ML VIAL IVP SCH (09:14)
[2021-10-28] MEDS: *HR* Enoxaparin 40 MG/0.4 ML SYRINGE SQ SCH (09:17)
[2021-10-28 09:55] LABS: Magnesium 1.8 mg/dL (1.6-2.6); Phosphorous 4.4 mg/dL (2.7-4.5)
[2021-10-28 10:36] LABS: ABG Base Excess -1 mEq/L (-2 to 3); ABG HCO3 26 mEq/L (21-27); ABG Oxygen Saturation 97 % (95-98); ABG PCO2 51 mmHg (35-45); ABG PH 7.32 pH Units (7.32-7.45); ABG PO2 100 mmHg (85-104); ABG TCO2 28 mEq/L (20-26); Blood Gas Modality ASSIST CONTROL; Blood Gas VT 380 cc
[2021-10-28] MEDS: Insulin DETEMIR 100 UNIT/ML X5UNITS SUBQ SCH ×2 (10:55→20:11)
[2021-10-28] MEDS ORDERED: Clinimix E 5%-15% SOLUTION 2,000 ML with MVI, adult with vitamin K 10 ML IVC SCH (17:00)
[2021-10-29] MEDS: Insulin LISPRO 300 UNITS/3 ML VIAL SUBQ SCH ×3 (00:18→08:30)
[2021-10-29] MEDS: Artificial Tears SOLN 15 ML BOTTLE BOTH EYES SCH ×5 (00:18→14:55)
[2021-10-29] MEDS: Dexmedetomidine HCl 400 MCG/100 ML MLS IVC SCH ×6 (00:19→18:36)
[2021-10-29] MEDS: Cefepime HCl 2,000 MG in 0.9 % Sodium Chloride 10 ML IVP SCH ×3 (00:19→14:55)
[2021-10-29] MEDS: methylPREDNISolone 125 MG/2 ML VIAL IVP SCH ×3 (00:21→14:55)
[2021-10-29] MEDS: FentaNYL (PF) 1,000 MCG/100 ML IV.SOLN IVC SCH ×4 (01:29→18:06)
[2021-10-29] MEDS: Cisatracurium 200 MG in 0.9 % Sodium Chloride 80 ML IVC SCH ×2 (02:27→13:57)
[2021-10-29] MEDS: Ipratropium/Albuterol Neb 3 ML IH SCH ×4 (04:17→15:07)
[2021-10-29 04:57] LABS: Basophils % 0.3 %; Lymphocytes % 3.7 %
[2021-10-29 04:58] LABS: Basophils # 0.1 K/mcL (0.0-0.2); Hematocrit 45.5 % (35.3-44.9); Hemoglobin 14.1 g/dL (11.5-15.4); Immature Granulocytes % 2.3 % (0-4); Lymphocytes # 1.3 K/mcL (0.6-4.6); Mean Corpuscular Hemoglobin 28.6 pg (28.0-33.3); Mean Corpuscular Volume 92.3 fL (83.0-100.0); Monocytes # 1.4 K/mcL (0.0-1.3); Neutrophils # 31.8 K/mcL (1.6-8.9); Platelet Count 339 K/mcL (140-400); Red Blood Count 4.93 M/mcL (3.82-4.97); Red Cell Distribution Width 14.3 % (11.5-14.5); Segmented Neutrophils % 89.7 %
[2021-10-29 05:03] LABS: ABG Base Excess -1 mEq/L (-2 to 3); ABG HCO3 25 mEq/L (21-27); ABG Oxygen Saturation 94 % (95-98); ABG PCO2 45 mmHg (35-45); ABG PH 7.35 pH Units (7.32-7.45); ABG PO2 75 mmHg (85-104); ABG TCO2 26 mEq/L (20-26); Blood Gas Modality AF; Blood Gas VT 380 cc
[2021-10-29] MEDS: *HR* Enoxaparin 40 MG/0.4 ML SYRINGE SQ SCH (05:03)
[2021-10-29 05:07] LABS: White Blood Count 35.4 K/mcL (4.3-11.1)
[2021-10-29 05:19] LABS: Alanine Aminotransferase 25 Units/L (7-52); Albumin 3.1 g/dL (3.5-5.7); Alkaline Phosphatase 198 Units/L (34-104); Aspartate Amino Transferase 29 Units/L (13-39); BUN/Creatinine Ratio 39 (6-26); Bilirubin,Total 0.3 mg/dL (0.3-1.0); Blood Urea Nitrogen 21 mg/dL (6-20); Calcium 8.2 mg/dL (8.6-10.3); Carbon Dioxide 26 mEq/L (23-29); Chloride 101 mEq/L (98-107); Globulin 3.2 g/dL (2.4-3.5); Glucose 391 mg/dL (70-105); Magnesium 1.9 mg/dL (1.6-2.6); Osmolality,Calculated 297 (280-300); Phosphorous 2.2 mg/dL (2.7-4.5); Sodium 134 mEq/L (136-145); Total Protein 6.3 g/dL (6.4-8.9); eGFR For African Americans > 60 (> 60); eGFR For Non-African Americans > 60 (> 60)
[2021-10-29] MEDS: Budesonide/Formoterol 80/4.5 1 PUFF INH IH SCH (07:34)
[2021-10-29] MEDS: Chlorhexidine Rinse 15 ML MOUTHWASH MM SCH (07:41)
[2021-10-29] MEDS: Pantoprazole 40 MG VIAL IVP SCH (08:03)
[2021-10-29] MEDS: Furosemide 40 MG/4 ML VIAL IVP SCH (08:13)
[2021-10-29] MEDS: Insulin DETEMIR 100 UNIT/ML X5UNITS SUBQ SCH (08:24)
[2021-10-29] MEDS: Nicotine 21 MG PATCH.TD24 TD SCH (08:32)
[2021-10-29] MEDS: tiZANidine 4 MG TABLET PO SCH (08:32)
[2021-10-29] MEDS: BuPROPion SR (12 HR) 150 MG TABLET PO SCH (08:32)
[2021-10-29] MEDS: Gabapentin 300 MG CAPSULE PO SCH ×2 (08:33→14:55)
[2021-10-29] MEDS: FLUoxetine 20 MG CAPSULE PO SCH (09:21)
[2021-10-29] MEDS: Midazolam HCl 50 MG/50 ML IV.SOLN IVC SCH ×2 (09:23→18:36)
[2021-10-29] MEDS ORDERED: *HR* Dextrose 50 % in Water (Syg) 50 ML SYRINGE IVP PRN (10:34)
[2021-10-29] MEDS ORDERED: Sodium Phosphate 30 MMOL in D5% in Water 100 ML IVPB ONE (10:35)
[2021-10-29 12:25] VITALS: TEMP 97.7
[2021-10-29] MEDS ORDERED: Clinimix E 5%-15% SOLUTION 2,000 ML with MVI, adult with vitamin K 10 ML IVC SCH (17:00)
[2021-10-29 17:15] VITALS: PULSE 88; O2SAT 92
[2021-10-29 18:13] VITALS: BP 106/76
== END 2021-10-29 18:55 | disposition short-term general hospital (02) | DRG 720 ==
LOC: 2NENU → SUATTDRO 18:45 → 2NNU 10-24 19:13 → ICNU 10-28 06:30
PROVIDERS: ADMIT Student in an Organized Health Care Education/Training Program; ATTEND Internal Medicine